=== PATIENT | male | born 1945 | race Caucasian/White ===

== ENCOUNTER 2019-06-20 05:35 | Outpatient (RCR) | payer MEDICARE, MEDICAID, SELFPAY | END 2019-07-04 00:01 | LOC: ONCMED 05:35 | PROVIDERS: Family Provider Nurse Practitioner; Visit Provider Nurse Practitioner | DX: C34.31 Malignant neoplasm of lower lobe, right bronchus or lung (principal); J43.9 Emphysema, unspecified; R53.83 Other fatigue; M19.90 Unspecified osteoarthritis, unspecified site; J90 Pleural effusion, not elsewhere classified; I25.2 Old myocardial infarction; I25.10 Atherosclerotic heart disease of native coronary artery without angina pectoris; I10 Essential (primary) hypertension; E78.5 Hyperlipidemia, unspecified; I73.9 Peripheral vascular disease, unspecified; I71.4 Abdominal aortic aneurysm, without rupture; M06.9 Rheumatoid arthritis, unspecified; K21.9 Gastro-esophageal reflux disease without esophagitis; D47.2 Monoclonal gammopathy; Z79.52 Long term (current) use of systemic steroids; Z87.891 Personal history of nicotine dependence; Z99.81 Dependence on supplemental oxygen | CPT/HCPCS: 80053; 84439; 84443; 85025; 99214 ==

== ENCOUNTER 2019-07-21 06:25 | Outpatient (RCR) | payer MEDICARE, MEDICAID, SELFPAY ==
[2019-07-10 17:34] LABS: Basophils % 0.4 %; Eosinophils # 0.6 10^3/uL (0.0-0.8); Eosinophils % 6.6 %; Hematocrit 43.2 % (42.0-52.0); Hemoglobin 13.4 g/dL (11.7-16.6); Lymphocytes # 2.3 10^3/uL (0.8-4.8); Lymphocytes % 24.8 %; Mean Corpuscular Hemoglobin 29.3 pg (28.0-34.0); Mean Corpuscular Volume 94.5 fL (80-94); Mean Platelet Volume 10.8 fL (7.4-10.4); Monocytes # 0.9 10^3/uL (0.2-0.9); Monocytes % 9.8 %; Neutrophils # 5.3 10^3/uL (1.8-7.7); Neutrophils % 57.9 %; Nucleated Red Blood Cells % 0 %; Platelet Count 255 10^3/cmm (130-400); Red Blood Count 4.57 10^6/uL (4.1-5.3); Red Cell Distribution Width 16.1 % (12.1-15.1); White Blood Count 9.2 10^3/uL (4.0-10.0)
[2019-07-10 23:25] LABS: Alanine Aminotransferase 12 U/L (0-41); Albumin Level 3.7 g/dL (3.5-5.2); Alkaline Phosphatase 95 IU/L (40-130); Anion Gap 19.5 (5-19); Aspartate Amino Transferase 16 U/L (0-40); Blood Urea Nitrogen 14 mg/dL (8-23); Calcium 9.7 mg/Dl (8.8-10.2); Carbon Dioxide 27 mmol/L (22-29); Chloride 100 mmol/L (98-107); Globulin 3.3 g/dL (1.3-4.6); Glucose 53 mg/dL (74-106); Potassium 4.5 mmol/L (3.5-5.1); Sodium 142 mmol/L (136-145); Thyroid Stimulating Hormone 1.37 uIU/mL (0.27-4.20); Total Bilirubin 0.3 mg/dL (0.15-1.2)
--- NOTE | 2019-07-13 11:26 | CT_ITS ---
WS: [id number] CT CHEST TECHNIQUE: Contrast enhanced CT of the chest with coronal and sagittal reformatted images. CLINICAL INFORMATION: LUNG CANCER COMPARISON: June 10, 2019 DLP: 592.[address] scans at [facility] use at least one of these dose optimization techniques: automat ed exposure control; mA and/or kV adjustment per patient size (includes targeted exams where dose is matched to clinical indication); or iterative reconstruction. FINDINGS: Advanced chronic emphysematous change. Again seen is the mass in the medial aspect of the right lower lobe today measuring approximately 5.4 x 5.2 cm x 4.6 cm compared to 4.6 x 4.3 cm x 4.2 cm previousl y. Stable subcarinal extension of tumor with subcarinal lymphadenopathy. Tumor appears increased in s ize since February 17, 2019 and slightly increased since June 10, 2019. Aortic calcification. Coronary calcification. Anterior mediastinal lymph nodes are unchanged. Stable bilateral pleural plaques. Interstitial thickening within both lungs. A few calcified granulom as. 4 mm noncalcified subpleural nodule in the left upper lobe is unchanged. Adrenal glands are normal. 1. Interval increase in size of the right lower lobe posterior mediastinal and subcarinal mass today measuring 5.1 x 5.2 x 4.6 cm increase in size over the prior 2 examinations. 2. Stable subcarinal extension of tumor and lymphadenopathy. 3. Stable numerous prominent anterior mediastinal lymph nodes. 4. Advanced chronic emphysematous changes. No acute pulmonary infiltrates. 5. Stable pleural plaques. CT/CT chest w con* [id number] IMPRESSION:
[2019-07-13] MEDS: iodixanol 320 mg/mL 100mL Btl IV (13:46)
[2019-07-13 13:58] LABS: Basophils % 0.3 %; Eosinophils # 0.2 10^3/uL (0.0-0.8); Eosinophils % 1.8 %; Hematocrit 39.4 % (42.0-52.0); Hemoglobin 12.3 g/dL (11.7-16.6); Lymphocytes % 10.9 %; Mean Corpuscular HGB Conc 31.2 g/dL (30.0-36.0); Mean Corpuscular Hemoglobin 28.1 pg (28.0-34.0); Monocytes # 0.6 10^3/uL (0.2-0.9); Monocytes % 6.6 %; Neutrophils # 7.6 10^3/uL (1.8-7.7); Neutrophils % 79.5 %; Nucleated Red Blood Cells % 0 %; Platelet Count 252 10^3/cmm (130-400); Red Blood Count 4.38 10^6/uL (4.1-5.3); Red Cell Distribution Width 15.8 % (12.1-15.1); White Blood Count 9.6 10^3/uL (4.0-10.0)
[2019-07-13 14:16] LABS: Alanine Aminotransferase 11 U/L (0-41); Albumin Level 3.6 g/dL (3.5-5.2); Alkaline Phosphatase 94 IU/L (40-130); Aspartate Amino Transferase 15 U/L (0-40); Blood Urea Nitrogen 16 mg/dL (8-23); Calcium 9.1 mg/Dl (8.8-10.2); Carbon Dioxide 27 mmol/L (22-29); Chloride 99 mmol/L (98-107); Globulin 2.9 g/dL (1.3-4.6); Glucose 114 mg/dL (74-106); Sodium 137 mmol/L (136-145); Thyroid Stimulating Hormone 0.75 uIU/mL (0.27-4.20); Total Bilirubin 0.3 mg/dL (0.15-1.2); Total Protein 6.5 g/dL (6.6-8.7)
--- NOTE | 2019-07-17 10:40 | ONC FU_ITS ---
Dr. Akins Patient Follow-Up Note Patient: Javier Alexander Unit #: [id number]: [id number] Dicatated By: Joseph Akins M.D.Date of Visit:Jul 11, 2019 Onc Med Follow-up/Prog Note Chief Complaint: Lung cancer. 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 By clinical evaluation his disease is stage IIIB (T2b, N3, M0). I had seen him initially in June 2016 in regard to a low level IgM kappa monoclonal gammopathy. It had initially been discovered in March 2016 when his serum protein electrophoresis confirmed the presence of an IgM kappa paraprotein which quantitated at 0.21 g/dL. His CBC at that time showed normal hemoglobin at 14.6 g with hematocrit 44.6%. The white blood cell count was normal at 8500 and the platelet count was normal at 288,000. Comprehensive metabolic profile was unremarkable except for borderline renal function with BUN 15 and creatinine 1.2 mg/dL. The bilirubin and liver enzymes were normal. Calcium was normal 9.1 mg/dL. His evaluation had also included contrast-enhanced CT scans of the chest/abdomen/pelvis on 05/08/2016. The chest showed extensive centrilobular and paraseptal emphysematous changes, especially involving the upper lobes. There were increased interstitial opacities with honeycombing involving both lower lobes. The findings were felt to be consistent with interstitial pulmonary fibrosis, and they did appear to be progressive from a study in October 2013. A flattened density in the peripheral right middle lobe was unchanged, measuring 6.5 mm. There were no other mass lesions identified. A right paratracheal lymph node measured 1 x 1.8 cm with smaller subcentimeter right paratracheal lymph nodes also noted. An AP window lymph node measured 1.3 cm. Partially calcified subcarinal node or nodes measured up to 3.5 cm in width and 1.2 cm in depth with left hilar node and measuring 1.3 cm. There were smaller hilar nodes bilaterally up to 1.1 cm. The abdomen showed extensive atherosclerotic peripheral vascular disease with a 3.1 cm distal abdominal aortic aneurysm, increased from 2.7 cm in 2014. Given the findings, I had just recommended observation/expectant management for the monoclonal gammopathy. I had recommended that he had a follow-up chest CT scan, which he declined. On 06/23/2018 he was admitted to the hospital with an acute ST elevation myocardial infarction. He had been brought in by EMS following an episode of witnessed syncope with substernal chest pain. While in route he went into ventricular fibrillation requiring CPR. 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 He underwent stenting to the proximal and mid right coronary artery. Additional stenoses were noted in the left main, LAD, and circumflex arteries. He subsequently was evaluated by Dr. Espinosa and was recommended to undergo cardiac bypass surgery. In the meantime, repeat chest x-ray on 06/26/2018 showed evidence of the right lower lobe mass lesion versus right hilar lymphadenopathy, consistent with neoplasm. Further evaluation with chest CT showed a bulky superior segment right lower lobe neoplasm measuring 5.1 x 6.2 x 7.6 cm. There was associated subcarinal adenopathy measuring 4.4 x 2.3 x 6.2 cm. There was additional precarinal, right paratracheal, AP window, and bilateral hilar lymphadenopathy. There was evidence of bilateral lower lobe pneumonia and there was severe chronic emphysema. Also noted was progressive interstitial pulmonary fibrosis. Multiple foci of calcified pleural plaque formation in both alexsander-thoraces in the bilateral hemidiaphragms was felt to be consistent with prior asbestos exposure. PET/CT on 07/02/2018 showed a 5.1 x 4.7 cm superior segment right lower lobe mass with SUV 28.4. The mass was noted to extend into the hilum. A separate 2.4 cm node in the right middle lobe hilum was FDG avid with SUV 18.9. Malignant mediastinal adenopathy was also present with the index lesion in the subcarinal territory measuring 4.3 x 2.5 cm, SUV 25.8. Other smaller malignant nodes were present in the bilateral paratracheal and precarinal territories. On 07/15/2018 he underwent flexible diagnostic bronchoscopy. He was noted to have an endobronchial lesion in the right lower lobe bronchus. Biopsy showed poorly differentiated invasive squamous cell carcinoma. I had seen him initially on 07/25/2018. By clinical evaluation his disease was stage IIIB (T2b, N3, M0), the usual treatment for which would be concurrent chemoradiation. However, in view of his underlying medical illnesses and marginal performance status, our initial recommendation was to continue with palliative radiation as a single modality. In the meantime, I also requested a PD-L1 expression, and his tumor was found to have high PD-L1 expression by IHC, approximately 80% by PD-L1 clone 22C3. His medical history is otherwise significant for hypertension, hyperlipidemia, carotid artery disease, peripheral arterial disease, and known abdominal aortic aneurysm. His other illnesses include COPD, pulmonary fibrosis, rheumatoid arthritis, GERD, and a history of stroke. He has history of smoking for 60 years, previously up to 1 1/2 packs of cigarettes daily. He currently smokes 1 pack per day. He has had some alcohol use in the past, but not heavy. He quit drinking in 2010. INTERIM HISTORY: Because of his rheumatoid arthritis, he was referred to [facility] for the radiation. However, given the size of his tumor and the size of the radiation field that would be required to treat it, it was felt that radiation would have more risk than benefit. As such, he began a trial of therapy with pembrolizumab, cycle 1 beginning 09/01/2018. He tolerated the initial infusion well, and he then continued treatment at 3-week intervals. He received his 8th cycle on 01/26/2019. At his follow-up visit on 02/16/2019 I opted to put his treatment on hold due to worsening shortness of breath. His chest CT on 02/17/2019 showed marginal decrease in the size of the right upper lobe neoplasm with stable mediastinal and hilar lymphadenopathy. There was noted to be an enlarging left axillary lymph node. There was extensive calcified pleural plaque formation suggestive of prior asbestos exposure. There was evidence of chronic emphysema with bibasilar and to a lesser extent bilateral upper lobe interstitial fibrosis. With those findings, I did have him start on steroid therapy. He subsequently did show some improvement in his symptoms, and he was able to continue with cycle 9 of pembrolizumab on 03/07/2019. He tolerated it with no adverse effect, and he has since then continued treatment at 3-week intervals. He received his 13th cycle on 05/30/2019 On 06/10/2019 he had presented to the emergency room with increased shortness of breath. A CT pulmonary angiogram showed no evidence for pulmonary embolism. There was moderate to severe emphysema. A mass in the medial aspect of the right lower lobe was noted to have diminished in size from approximately 8 cm to 4 cm. Subcarinal tumor extension or adenopathy also was noted to have diminished in size. The previously noted areas of consolidation/infiltrate throughout both lung bases has almost completely resolved. Overall, there did not appear to be any acute findings and there was no evidence of disease progression. At his follow-up visit on 06/20/2019 he continued to complain of shortness of breath, and his treatment was put on hold. He is seen for a scheduled visit. He has been feeling a little better generally other than the antibiotic he had been given made him sick. He also had poor tolerance for a new breathing treatment which he had started. He has since then been back on his old breathing treatment, and he has had to increase his alprazolam dosage. He has continued on 10 mg of prednisone daily. He also required an increase in the dosage of his pain medication. However, he says he does have more energy now. He is able to do light work. ECOG score is 1. He also is eating more, and he has gained weight. He has not had fever. He occasionally has sweating at night. His breathing is just so-so, but better now than it had been. He has just occasional cough. He has pain intermittently in the upper back between the shoulder blades. He has occasional acid reflux and occasional constipation. He has no complaints. He also complains that he aches and hurts all over. He has no focal neurologic symptoms. Medications: ALPRAZolam 1 Tablet (of 0.5 mg) Oral t.i.d. PRN, Anoro Ellipta 1 (62.5-25 mcg/inh) Aerosol Powder, Breath Activated Inhalation daily, Aspirin 1 (81 mg) Tablet Oral daily, Ipratropium-Albuterol 1 (20-100 mcg/act) Aerosol, solution Inhalation daily PRN, Isosorbide Mononitrate ER 0.5 Tablet (of 30 mg) Tablet SR 24 HR Oral daily, Metoprolol Tartrate 0.5 (25 mg) Tablet Oral daily, oxyCODONE HCl 1 - 1.5 Tablet (of 20 mg) Oral q 6 hours PRN, Pantoprazole Sodium 1 Tablet (of 40 mg) Tablet, enteric coated Oral daily, Plavix 1 Tablet (of 75 mg) Oral daily, predniSONE 1 Tablet (of 10 mg) Oral daily, PredniSONE 1 Tablet (of 5 mg) Oral daily PRN, Simvastatin 1 Tablet (of 40 mg) Oral at bedtime, Ventolin HFA 2 puff(s) (of 108 (90 base) mcg/act) Aerosol, solution Inhalation four times a day Allergies: AARON Inhibitors, Cymbalta, Plaquenil, and Pravachol. Review of Systems: Constitutional - His energy is up some. His appetite is good and he has gained weight. No fever, chills, hot flashes. He has occasional sweating at night, just around his head. ECOG score is 1, ENMT - He has sinus congestion/drainage. No mouth sores. No sore throat or difficulty swallowing, Hematologic/Lymphatic - He bruises easily, Respiratory - His breathing is okay. He wears continuous oxygen. He has a cough. No pleuritic pain or hemoptysis, Cardiovascular - He has occasional chest pain. No palpitations, Gastrointestinal - No nausea or vomiting. He has occasional acid reflux. No diarrhea or constipation. No blood in the stool or black stools, Genitourinary (M) - No dysuria or hematuria. No urinary frequency. No urgency or incontinence, Musculoskeletal - He has generalized pain, Integumentary - No skin complications, Neurologic - No headache. He sometimes feels dizzy and light-headed. No numbness/paresthesias or other focal neurologic symptoms, Psychiatric - He has some anxiety. No insomnia. Vital Signs: Performed on Jul 11, 2019 10:23 Height - 72.00 in Weight - 174.2 lbs (HIGH) BSA - 2.01 sq.m BMI - 23.63 Temperature - 98.4 F Pulse - 91 /min Respiration - 24 /min BP - 144/81 mm(hg) (HIGH) O2 Sat - 96 % Pain - 8 Physical Examination: Constitutional - He appears somewhat weak generally, Eyes - Sclerae nonicteric. Conjunctivae clear, ENMT - No lesions noted in the oral cavity, Hematologic/Lymphatic - No cervical, clavicular, or axillary adenopathy, Respiratory - Lungs sound clear with diminished air movement bilaterally, Cardiovascular - Heart rhythm is regular. There is a II/ systolic murmur. There is no gallop or rub noted, Abdomen - Soft. Liver and spleen are not enlarged. There is no abdominal mass or ascites noted and there is no inguinal adenopathy, Extremities - No edema. He has extensive purpura, Neurologic - No focal neurologic deficits noted. Lab/Imaging: Test performed on Jul 10, 2019 06:45 TSH 1.37 uU/mL Glucose 53 mg/dL BUN 14 mg/dL Creatinine 1.3 mg/dL Cr Clearance (Est) 55.72 mL/min Sodium 142 mmol/L Potassium 4.5 mmol/L Chloride 100 mmol/L CO2 27 mmol/L Calcium 9.7 mg/dL Protein, Total 7.0 g/dL Albumin 3.7 g/dL Globulin 3.3 g/dL Bilirubin, Total 0.3 mg/dL Alkaline Phosphatase 95 IU/L AST (SGOT) 16 IU/L ALT (SGPT) 12 IU/L WBC 9.2 10^9/L RBC 4.57 10^12/L HGB 13.4 g/dL HCT 43.2 % MCV 94.5 fl MCH 29.3 pg MCHC 31.0 g/dL RDW 16.1 % Platelet Count 255 10^9/L MPV 10.8 fL Neutrophils (Gran) 5.3 10^9/L Lymphocytes 2.3 10^9/L Monocytes 0.9 10^9/L Eosinophils 0.6 10^9/L Basophils 0.0 10^9/L Manual Lymphocytes 24.8 % Manual Monocytes 9.8 % Manual Eosinophils 6.6 % Manual Basophils 0.4 % NRBCs 0.0 /100 WBC Impression: 1. 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 The clinical evaluation his disease is stage IIIB (T2b, N3, M0). His tumor was found to have high PD-L1 expression by IHC, approximately 80% by PD-L1 clone 22C3. 2. On 06/23/[address] he [address] an acute ST elevation myocardial infarction requiring emergent coronary angioplasty/stent placement. 3. Prior to the procedure he had gone into ventricular fibrillation, requiring CPR and multiple shocks. 4. His cardiac catheterization showed additional occlusive disease in the left main, LAD, and left circumflex arteries. His other medical illnesses include: 5. Hypertension. 6. Hyperlipidemia. 7. Carotid stenosis. 8. Peripheral arterial disease. 9. Abdominal aortic aneurysm. 10. COPD. 11. Pulmonary fibrosis. 12. Rheumatoid arthritis. 13. GERD. 14. IgM kappa monoclonal gammopathy of determine significance. He was evaluated for radiation, but ultimately it was determined that the risks with radiation would be too high. As such, he then began first-line immunotherapy with pembrolizumab. He receives his cycle 1 infusion on 09/01/2018. He tolerated it well, and he then continued treatment at 3-week intervals. He received cycle 8 of pembrolizumab on 01/26/2019. At his follow-up visit on 02/16/2019 his treatment was put on hold due to worsening shortness of breath. At the time I had suspected that he might be having some component of treatment related pneumonitis, and I did have him start steroid therapy. A subsequent chest CT showed marginal decrease in the size of the right upper lobe neoplasm. There were a lot of chronic changes related to COPD, but those did appear stable. He did show some symptomatic improvement on the prednisone, and he was then able to continue with cycle 9 of pembrolizumab on 03/07/2019. He tolerated it with no adverse effects. He then continued treatment at 3-week intervals. As of 05/30/2019 he received cycle 13 of pembrolizumab. His treatment subsequent was put on hold due to increased shortness of breath. CT pulmonary angiogram showed no evidence of pulmonary embolism or other acute pathology, and there was no obvious disease progression. Plan: At this point I think it is best to keep his treatment on hold. He will continue prednisone at 10 mg daily. He also will continue alprazolam and immediate release oxycodone at the same dosages, as he clearly has had improved performance status with better symptom management. He will be scheduled for repeat chest CT for further treatment planning. Signed By: Joseph Akins M.D. <<Signature on File>>
--- NOTE | 2019-07-22 13:18 | ONCRAD EPV_ITS ---
Radiation Oncology Established Patient Visit Patient: Suyapa MR#: [id number] : 1945> Age: 73> Sex: Male> Dictated by: Dr. Alan Arevalo Date of Service: 07/21/2019 Referring Physician(s) : Ange Maldonado Diagnosis: C34.31 - Malignant neoplasm of lower lobe, right bronchus or lung, Diagnosed 07/25/2018 (Active) Stage IIIB, T2b, N3, M0 D47.2 - Monoclonal gammopathy, Diagnosed 03/11/2016 (Active) Chief Complaint / History of Present Illness: This is a 72-year-old man with a history of CO and rheumatoid arthritis diagnosed with stage IIIA (T2b, N2, M0) poorly differentiated infiltrating squamous cell carcinoma involving the right lower lobe of the lung with mediastinal and right hilar lymphadenopathy. He was evaluated at [facility] in [place] and was recommended to receive anti-PD1 immunotherapy. Concurrent chemoradiation therapy was not recommended due to the close proximity of the tumor to the heart while he had CO at the time of lung cancer diagnosis as well as history of rheumatoid arthritis. His tumor had a high expression of PD-L1 and he had some response to immunotherapy with marginal decrease in size of the tumor. However immunotherapy was put on hold due to increased shortness of breath. He received prednisone treatment with improved symptom. The patient notes productive cough, mild hemoptysis and posterior mid back pain which is moderate. He has severe fatigue, night sweats, but denies poor appetite or significant weight loss. He denies headaches, nausea, vomiting or focal neurological deficits. The patient was referred to radiation oncology for consideration of palliative radiation therapy. Current Medications: ALPRAZolam, aLPRAZolam, anoro Ellipta, aspirin, fentaNYL, ipratropium-Albuterol, ipratropium-Albuterol, isosorbide Mononitrate ER, keytruda, metoprolol Tartrate, nicotine, oxyCODONE HCl, oxyCODONE HCl, pantoprazole Sodium, plavix, predniSONE, predniSONE, predniSONE, simvastatin, ventolin HFA. Allergies: Cymbalta, Pravachol, Plaquenil and AARON Inhibitors. Current Complaints / Review of Systems: Constitutional - Complains of severe fatigue. Complains of night sweats which occur occasionally. Denies lack of appetite, fever and change in weight. Eyes - Complains of blurred vision which happens once in awhile. ENMT - Complains of dysphagia occasionally, problems with hearing and tinnitus. Denies ear pain, mouth dryness, stomatitis and altered taste. Neck - Denies neck pain. Integumentary - Denies rash. Cardiovascular - Complains of chest pain which happens occasionally. Respiratory - Complains of a moderate cough which is productive. Complains of hemoptysis that is streaky which happens mostly in the mornings. Complains of wheezing on 4L of 02 by NC. Gastrointestinal - Complains of abdominal pain occasionally, constipation, heartburn / dyspepsia happens once in awhile and nausea occasionally. Denies diarrhea, melena / GI bleeding and vomiting. Genitourinary (M) - Denies dysuria, frequency, nocturia and urgency. Musculoskeletal - Complains of arthritis in which he has Rheumatoid. Complains of joint pain. Complains of generalized muscle weakness. Denies bone pain. Neurologic - Complains of intermittent dizziness. Denies headaches. Endocrine - Denies diabetes and thyroid disease. Hematologic/Lymphatic - Denies tender or enlarged lymph nodes.. Vital Signs: Performed on 07/21/2019 10:06 AM BMI - 24.385 kg/m2 (high), Height - 72.00 in, Weight - 179.8 lbs, Temperature - 97.2 f, Pulse - 80, Respiration - 20, O2 Sat - 93 % (low), Pain - 8 and BP - 148/ 81 mm(hg)(high/). Physical Exam: General: Alert and oriented x 3. No acute distress. HEENT: Normocephalic, atraumatic. Extraocular Movements Intact: Pupils Equal, Round, Reactive to Light and Accommodation: Sclerae anicteric. Oral cavity is clear without lesions, masses or ulcers. NECK: Supple without supraclavicular or jugular lymphadenopathy. LUNGS: Clear to auscultation bilaterally without rales, rhonchi or wheeze. HEART: Regular rate and rhythm, normal S1 and S2 without murmur, gallop or rub. MUSCULOSKELETAL: No tenderness or percussion pain over the axial skeleton, scapulae or pelvis. ABDOMEN: Soft, nontender, nondistended without masses or organomegaly. Bowel sounds are present. EXTREMITIES: No peripheral edema is identified. Limited motor and sensory examination are grossly intact and symmetric bilaterally. NEUROLOGIC: Cranial nerves II ???XII are grossly intact. Normal sensation, strength 5/5 in all extremities, normal gait, no ataxia. Performance Status: 2 - Ambulatory/capable of all self-care, unable to perform any work activities. Up and about more than 50% of waking hours. (ECOG) Lab: Test performed on 07/10/2019 6:45 AM MCHC - 31.0 g/dl (low), RDW - 16.1 % (high), Eosinophils - 0.6 10^9/l (high) and Cr Clearance (Est) - 55.72 ml/min (low). Pathology: poorly differentiated infiltrating squamous cell carcinoma Imaging: See HPI Impression: This is a 72-year-old man with a history of CO and rheumatoid arthritis diagnosed with stage IIIA (T2b, N2, M0) poorly differentiated infiltrating squamous cell carcinoma involving the right lower lobe of the lung with mediastinal and right hilar lymphadenopathy. He received anti-PD1 immunotherapy in the past 1 year with marginal response. However the immunotherapy is put on hold due to potential toxicity of increased shortness of breath. Plan: Medical oncology has decided to discontinue anti-PD1 immunotherapy. Patient was referred to us for consideration of palliative radiation therapy. However he has a high risk of radiation toxicities due to his comorbidities of rheumatoid arthritis, myocardial infarction and close proximity of the tumor to the heart. We had a prolonged discussion about the situation. Eventually we agreed that he should seek a second opinion about radiation therapy at [facility] since immunotherapy is no longer an option at this time. We will make the referral. The patient will follow up with us after his visit to [facility]. Signed by: 07/22/2019 1:17:09 PM <<Signature on File>> CPT Code: CPT Code: Signed By: Dr. Alan Arevalo, 07/22/2019 1:17:10 PM <<Signature on File>>
== END 2019-08-04 23:59 | disposition home or self-care (01) ==
LOC: RAD 06:25
PROVIDERS: Internal Medicine Medical Oncology; Nurse Practitioner; Family Provider Nurse Practitioner; PCP Nurse Practitioner; Visit Provider Radiology Radiation Oncology
DX: C34.31 Malignant neoplasm of lower lobe, right bronchus or lung (principal); D47.2 Monoclonal gammopathy; J44.9 Chronic obstructive pulmonary disease, unspecified; Z79.899 Other long term (current) drug therapy
CPT/HCPCS: 71260; 80053; 84443; 85025; 99214; 99215; Q9967

== ENCOUNTER 2019-08-28 05:17 | Outpatient (RCR) | payer MEDICARE, MEDICAID, SELFPAY ==
[2019-08-25 14:41] LABS: Basophils # 0.1 10^3/uL (0.0-0.1); Basophils % 0.6 %; Eosinophils # 0.1 10^3/uL (0.0-0.8); Hematocrit 43.7 % (42.0-52.0); Hemoglobin 13.7 g/dL (11.7-16.6); Lymphocytes # 1.1 10^3/uL (0.8-4.8); Lymphocytes % 9.5 %; Mean Corpuscular HGB Conc 31.4 g/dL (30.0-36.0); Mean Corpuscular Hemoglobin 28.7 pg (28.0-34.0); Mean Corpuscular Volume 91.4 fL (80-94); Mean Platelet Volume 9.9 fL (7.4-10.4); Monocytes # 0.5 10^3/uL (0.2-0.9); Monocytes % 4.6 %; Neutrophils # 9.6 10^3/uL (1.8-7.7); Neutrophils % 83.7 %; Nucleated Red Blood Cells % 0 %; Platelet Count 365 10^3/cmm (130-400); Red Blood Count 4.78 10^6/uL (4.1-5.3); Red Cell Distribution Width 16.2 % (12.1-15.1); White Blood Count 11.4 10^3/uL (4.0-10.0)
[2019-08-25 15:26] LABS: Alanine Aminotransferase 11 U/L (0-41); Albumin Level 3.5 g/dL (3.5-5.2); Alkaline Phosphatase 92 IU/L (40-130); Anion Gap 19.5 (5-19); Aspartate Amino Transferase 17 U/L (0-40); Blood Urea Nitrogen 13 mg/dL (8-23); Calcium 9.4 mg/dL (8.5-10.5); Carbon Dioxide 24 mmol/L (22-29); Chloride 98 mmol/L (98-107); Globulin 3.9 g/dL (1.3-4.6); Glucose 147 mg/dL (65-115); Potassium 4.5 mmol/L (3.5-5.1); Sodium 137 mmol/L (136-145); Thyroid Stimulating Hormone 1.08 uIU/mL (0.27-4.20); Total Bilirubin 0.3 mg/dL (0.15-1.2); Total Protein 7.4 g/dL (6.6-8.7)
[2019-08-25 15:27] LABS: Erythrocyte Sedimentation Rate 25 mm/hr (0-10)
--- NOTE | 2019-09-01 08:07 | ONC FU_ITS ---
Dr. Akins Patient Follow-Up Note Patient: Javier Alexander Unit #: [id number]: [id number] Dicatated By: Joseph Akins M.D.Date of Visit:Aug 28, 2019 Onc Med Follow-up/Prog Note Chief Complaint: Lung cancer. 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 By clinical evaluation his disease is stage IIIB (T2b, N3, M0). I had seen him initially in June 2016 in regard to a low level IgM kappa monoclonal gammopathy. It had initially been discovered in March 2016 when his serum protein electrophoresis confirmed the presence of an IgM kappa paraprotein which quantitated at 0.21 g/dL. His CBC at that time showed normal hemoglobin at 14.6 g with hematocrit 44.6%. The white blood cell count was normal at 8500 and the platelet count was normal at 288,000. Comprehensive metabolic profile was unremarkable except for borderline renal function with BUN 15 and creatinine 1.2 mg/dL. The bilirubin and liver enzymes were normal. Calcium was normal 9.1 mg/dL. His evaluation had also included contrast-enhanced CT scans of the chest/abdomen/pelvis on 05/08/2016. The chest showed extensive centrilobular and paraseptal emphysematous changes, especially involving the upper lobes. There were increased interstitial opacities with honeycombing involving both lower lobes. The findings were felt to be consistent with interstitial pulmonary fibrosis, and they did appear to be progressive from a study in October 2013. A flattened density in the peripheral right middle lobe was unchanged, measuring 6.5 mm. There were no other mass lesions identified. A right paratracheal lymph node measured 1 x 1.8 cm with smaller subcentimeter right paratracheal lymph nodes also noted. An AP window lymph node measured 1.3 cm. Partially calcified subcarinal node or nodes measured up to 3.5 cm in width and 1.2 cm in depth with left hilar node and measuring 1.3 cm. There were smaller hilar nodes bilaterally up to 1.1 cm. The abdomen showed extensive atherosclerotic peripheral vascular disease with a 3.1 cm distal abdominal aortic aneurysm, increased from 2.7 cm in 2014. Given the findings, I had just recommended observation/expectant management for the monoclonal gammopathy. I had recommended that he had a follow-up chest CT scan, which he declined. On 06/23/2018 he was admitted to the hospital with an acute ST elevation myocardial infarction. He had been brought in by EMS following an episode of witnessed syncope with substernal chest pain. While in route he went into ventricular fibrillation requiring CPR. 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 He underwent stenting to the proximal and mid right coronary artery. Additional stenoses were noted in the left main, LAD, and circumflex arteries. He subsequently was evaluated by Dr. Espinosa and was recommended to undergo cardiac bypass surgery. In the meantime, repeat chest x-ray on 06/26/2018 showed evidence of the right lower lobe mass lesion versus right hilar lymphadenopathy, consistent with neoplasm. Further evaluation with chest CT showed a bulky superior segment right lower lobe neoplasm measuring 5.1 x 6.2 x 7.6 cm. There was associated subcarinal adenopathy measuring 4.4 x 2.3 x 6.2 cm. There was additional precarinal, right paratracheal, AP window, and bilateral hilar lymphadenopathy. There was evidence of bilateral lower lobe pneumonia and there was severe chronic emphysema. Also noted was progressive interstitial pulmonary fibrosis. Multiple foci of calcified pleural plaque formation in both alexsander-thoraces in the bilateral hemidiaphragms was felt to be consistent with prior asbestos exposure. PET/CT on 07/02/2018 showed a 5.1 x 4.7 cm superior segment right lower lobe mass with SUV 28.4. The mass was noted to extend into the hilum. A separate 2.4 cm node in the right middle lobe hilum was FDG avid with SUV 18.9. Malignant mediastinal adenopathy was also present with the index lesion in the subcarinal territory measuring 4.3 x 2.5 cm, SUV 25.8. Other smaller malignant nodes were present in the bilateral paratracheal and precarinal territories. On 07/15/2018 he underwent flexible diagnostic bronchoscopy. He was noted to have an endobronchial lesion in the right lower lobe bronchus. Biopsy showed poorly differentiated invasive squamous cell carcinoma. I had seen him initially on 07/25/2018. By clinical evaluation his disease was stage IIIB (T2b, N3, M0), the usual treatment for which would be concurrent chemoradiation. However, in view of his underlying medical illnesses and marginal performance status, our initial recommendation was to continue with palliative radiation as a single modality. In the meantime, I also requested a PD-L1 expression, and his tumor was found to have high PD-L1 expression by IHC, approximately 80% by PD-L1 clone 22C3. Because of his rheumatoid arthritis, he was referred to [facility] for the radiation. However, given the size of his tumor and the size of the radiation field that would be required to treat it, it was felt that radiation would have more risk than benefit. As such, he began a trial of therapy with pembrolizumab, cycle 1 beginning 09/01/2018. He tolerated the initial infusion well, and he then continued treatment at 3-week intervals. He received his 8th cycle on 01/26/2019. At his follow-up visit on 02/16/2019 I opted to put his treatment on hold due to worsening shortness of breath. His chest CT on 02/17/2019 showed marginal decrease in the size of the right upper lobe neoplasm with stable mediastinal and hilar lymphadenopathy. There was noted to be an enlarging left axillary lymph node. There was extensive calcified pleural plaque formation suggestive of prior asbestos exposure. There was evidence of chronic emphysema with bibasilar and to a lesser extent bilateral upper lobe interstitial fibrosis. With those findings, I did have him start on steroid therapy. He subsequently did show some improvement in his symptoms, and he was able to continue with cycle 9 of pembrolizumab on 03/07/2019. He tolerated it with no adverse effect, and he has since then continued treatment at 3-week intervals. He received his 13th cycle on 05/30/2019. On 06/10/2019 he had presented to the emergency room with increased shortness of breath. A CT pulmonary angiogram showed no evidence for pulmonary embolism. There was moderate to severe emphysema. A mass in the medial aspect of the right lower lobe was noted to have diminished in size from approximately 8 cm to 4 cm. Subcarinal tumor extension or adenopathy also was noted to have diminished in size. The previously noted areas of consolidation/infiltrate throughout both lung bases has almost completely resolved. Overall, there did not appear to be any acute findings and there was no evidence of disease progression. At his follow-up visit on 06/20/2019 he continued to complain of shortness of breath, and his treatment was put on hold. His medical history is otherwise significant for hypertension, hyperlipidemia, carotid artery disease, peripheral arterial disease, and known abdominal aortic aneurysm. His other illnesses include COPD, pulmonary fibrosis, rheumatoid arthritis, GERD, and a history of stroke. He has history of smoking for 60 years, previously up to 1 1/2 packs of cigarettes daily. He currently smokes 1 pack per day. He has had some alcohol use in the past, but not heavy. He quit drinking in 2010. INTERIM HISTORY: Repeat chest CT on 07/13/2019 showed interval increase in the size of the right lower lobe mass measuring 5.1 x 5.2 x 4.6 cm. Subcarinal extension of tumor and associated lymphadenopathy appeared stable, as did numerous prominent anterior mediastinal lymph nodes. There were advanced chronic emphysematous changes, but there were no acute pulmonary infiltrates. He is seen for a scheduled visit. In July he had seen Dr. Mar for pulmonary consultation. Since then he has started on a Trelegy inhaler and he has started antibiotic suppression with a azithromycin 250 mg daily. He continues to have limited activity tolerance. His ECOG score is 2. He has good appetite. He has not had fever. He occasionally has a little sweating at night. He occasionally has a little bit of sore throat. He continues to complain of shortness of breath. He has been having pain in the upper back between his shoulders, but it comes and goes. He has only a little bit of cough. He has been bringing up a little bit of blood with it in the mornings. He very seldom has chest pain. He has no GI/ complaints other than some mild constipation which he manages with just occasional laxative. He has generalized musculoskeletal pain, but it is managed adequately with medication. He occasionally has slight headache. He has no focal neurologic symptoms. Medications: ALPRAZolam 1 Tablet (of 0.5 mg) Oral t.i.d. PRN, Aspirin 1 (81 mg) Tablet Oral daily, Azithromycin 1 Tablet (of 250 mg) Oral daily for 60 days, Ipratropium-Albuterol 1 (20-100 mcg/act) Aerosol, solution Inhalation daily PRN, Isosorbide Mononitrate ER 0.5 Tablet (of 30 mg) Tablet SR 24 HR Oral daily, Metoprolol Tartrate 0.5 (25 mg) Tablet Oral daily, oxyCODONE HCl 1 - 1.5 Tablet (of 20 mg) Oral q 6 hours PRN, Pantoprazole Sodium 1 Tablet (of 40 mg) Tablet, enteric coated Oral daily, Plavix 1 Tablet (of 75 mg) Oral daily, predniSONE 1 Tablet (of 10 mg) Oral daily, Simvastatin 1 Tablet (of 40 mg) Oral at bedtime, Trelegy Ellipta 1 Puff(s) (of 100-62.5-25 mcg/inh) Aerosol Powder, Breath Activated Inhalation daily, Ventolin HFA 2 puff(s) (of 108 (90 base) mcg/act) Aerosol, solution Inhalation four times a day Allergies: AARON Inhibitors, Cymbalta, Plaquenil, and Pravachol. Review of Systems: Constitutional - His energy is about the same. He has limited activity. Appetite is good. He has not had fever. He occasionally has a little sweating at night. ECOG score is 2, ENMT - He has sinus drainage all the time. No mouth sores. No sore throat or difficulty swallowing, Hematologic/Lymphatic - He bruises easily, Respiratory - He has shortness of breath. He has a little bit of cough. He says he sometimes brings up a little bit of blood with it in the morning, Cardiovascular - He very seldom has chest pain. No palpitations, Gastrointestinal - No nausea or vomiting. No heartburn or acid reflux. He takes a laxative every once in a while, when he is constipated. No blood in the stool or black stools, Genitourinary (M) - No dysuria or hematuria. No urinary frequency. No urgency or incontinence, Musculoskeletal - He has generalized pain, Integumentary - No skin complications, Neurologic - He has occasional mild headaches. He has some dizziness, but very seldom. No numbness/paresthesias or other focal neurologic symptoms, Psychiatric - He has some anxiety and depression, but the Xanax helps. No insomnia. Vital Signs: Performed on Aug 28, 2019 09:20 Height - 72.00 in Weight - 174.0 lbs (LOW) BSA - 2.01 sq.m BMI - 23.60 Temperature - 98.7 F Pulse - 89 /min Respiration - 24 /min BP - 126/77 mm(hg) O2 Sat - 93 % (LOW) Pain - 8 Physical Examination: Constitutional - He appears somewhat weak generally, Eyes - Sclerae nonicteric. Conjunctivae clear, ENMT - No lesions noted in the oral cavity, Hematologic/Lymphatic - No cervical, clavicular, or axillary adenopathy, Respiratory - Lungs sound clear with diminished air movement bilaterally, Cardiovascular - Heart rhythm is regular. There is a II/ systolic murmur. There is no gallop or rub noted, Abdomen - Soft. Liver and spleen are not enlarged. There is no abdominal mass or ascites noted and there is no inguinal adenopathy, Extremities - No edema. He has chronic purpura, Neurologic - No focal neurologic deficits noted. Lab/Imaging: CBC shows hemoglobin 13.7 g, white blood cell count 11,400, and platelet count 365,000. Comprehensive metabolic profile shows elevated BUN and creatinine at 13 and 1.5 mg/dL. Liver enzymes are normal. Albumin is borderline low at 3.5 g/dL. TSH is normal at 1.08 ???IU/mL. Impression: 1. 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 The clinical evaluation his disease is stage IIIB (T2b, N3, M0). His tumor was found to have high PD-L1 expression by IHC, approximately 80% by PD-L1 clone 22C3. 2. On 06/23/[address] an acute [address] elevation myocardial infarction requiring emergent coronary angioplasty/stent placement. 3. Prior to the procedure he had gone into ventricular fibrillation, requiring CPR and multiple shocks. 4. His cardiac catheterization showed additional occlusive disease in the left main, LAD, and left circumflex arteries. His other medical illnesses include: 5. Hypertension. 6. Hyperlipidemia. 7. Carotid stenosis. 8. Peripheral arterial disease. 9. Abdominal aortic aneurysm. 10. COPD. 11. Pulmonary fibrosis. 12. Rheumatoid arthritis. 13. GERD. 14. IgM kappa monoclonal gammopathy of determine significance. He was evaluated for radiation, but ultimately it was determined that the risks with radiation would be too high. As such, he then began first-line immunotherapy with pembrolizumab. He receives his cycle 1 infusion on 09/01/2018. He tolerated it well, and he then continued treatment at 3-week intervals. He received cycle 8 of pembrolizumab on 01/26/2019. At his follow-up visit on 02/16/2019 his treatment was put on hold due to worsening shortness of breath. At the time I had suspected that he might be having some component of treatment related pneumonitis, and I did have him start steroid therapy. A subsequent chest CT showed marginal decrease in the size of the right upper lobe neoplasm. There were a lot of chronic changes related to COPD, but those did appear stable. He did show some symptomatic improvement on the prednisone, and he was then able to continue with cycle 9 of pembrolizumab on 03/07/2019. He tolerated it with no adverse effects. He then continued treatment at 3-week intervals. As of 05/30/2019 he received cycle 13 of pembrolizumab. His treatment subsequently was put on hold due to increased shortness of breath. CT pulmonary angiogram showed no evidence of pulmonary embolism or other acute pathology, and there was no obvious disease progression. During subsequent follow-up he did show some improvement in his breathing and in his performance status, though he continues to have limited activity tolerance. He had pulmonary consultation with Dr. Mar, and he has changed to a Trelegy inhaler along with antibiotic suppression with a azithromycin. His repeat chest CT in July did show further progression of the right lower lobe lung mass. Plan: At this point he remains on symptomatic/supportive care measures, as his further treatment options are very limited.. He continues prednisone at 10 mg daily. He also continues alprazolam and immediate release oxycodone at the same dosages. His other medications remain the same. I will see him again in 1 month with restaging PET/CT. Signed By: Joseph Akins M.D. <<Signature on File>>
== END 2019-09-02 23:59 | disposition home or self-care (01) ==
LOC: ONCMED 05:17
PROVIDERS: Radiology Radiation Oncology; Family Provider Nurse Practitioner; PCP Nurse Practitioner; Visit Provider Internal Medicine Medical Oncology
DX: C34.31 Malignant neoplasm of lower lobe, right bronchus or lung (principal); D47.2 Monoclonal gammopathy; I25.2 Old myocardial infarction; J84.10 Pulmonary fibrosis, unspecified; F41.8 Other specified anxiety disorders; J43.9 Emphysema, unspecified; I73.9 Peripheral vascular disease, unspecified; I71.4 Abdominal aortic aneurysm, without rupture; M06.9 Rheumatoid arthritis, unspecified; Z77.090 Contact with and (suspected) exposure to asbestos; Z79.82 Long term (current) use of aspirin; Z79.891 Long term (current) use of opiate analgesic; Z79.52 Long term (current) use of systemic steroids; Z79.899 Other long term (current) drug therapy; Z95.5 Presence of coronary angioplasty implant and graft; Z92.3 Personal history of irradiation; Z87.01 Personal history of pneumonia (recurrent); Z95.1 Presence of aortocoronary bypass graft; Z86.73 Personal history of transient ischemic attack (TIA), and cerebral infarction without residual deficits; Z92.21 Personal history of antineoplastic chemotherapy
CPT/HCPCS: 80053; 84443; 85025; 85651; 99214

== ENCOUNTER 2019-09-11 07:42 | Emergency (ER) | payer MEDICARE, MEDICAID, SELFPAY ==
[2019-09-11 07:43] VITALS: BMI 23.7
--- NOTE | 2019-09-11 07:44 | XRR_ITS ---
PROCEDURE INFORMATION: Exam: XR Chest, 1 View Exam date and time: 09/11/2019 8:02 AM Age: 74 years old Clinical indication: Cough; Prior surgery; Surgery date: 6+ months; Surgery type: Stents, date no provided; Additional info: Cough/congestion TECHNIQUE: Imaging protocol: XR of the chest Views: 1 view. COMPARISON: [place] Chest 1 [place] [id number] 06/11/2019 10:37 PM CR - Chest 2 views* [id number] 06/10/2019 12:58:59 PM FINDINGS: Lungs: There is bilateral chronic interstitial lung disease. There is a focal area of consolidation in the medial mid right hemithorax which appears to be bounded superiorly by a fissure. This is probably in the superior medial right middle lobe. Pleural space: No pleural effusion or pneumothorax. There are bilateral calcified pleural plaques. Heart/Mediastinum: The cardiac silhouette is not enlarged. The mediastinal contours are normal. Bones/joints: No acute osseous abnormality. XR/XR chest 1V portable [id number] IMPRESSION: 1. Focal consolidation in the superior medial right middle lobe which can be due to acute pneumonia. 2. This appears to be superimposed upon chronic interstitial lung disease. 3. Bilateral calcified pleural plaques suggesting prior asbestos exposure.
--- NOTE | 2019-09-11 07:44 | ECG_ITS ---
Measurements Intervals [place] Rate: 65 P: 40 [place]: 210 QRS: -17 QRSD: 98 T: 7 QT: 409 QTc: 427 SINUS RHYTHM WITH FIRST DEGREE AV BLOCK Compared to ECG 06/11/2019 22:30:03 First degree AV block now present Electronically Signed On 09-11-2019 20:48:53 CDT by Wes Zamarripa M.D. [email or web address]
[2019-09-11 07:47] VITALS: BP 107/67; PULSE 75; RESP 18; TEMP 36.7; O2SAT 95
--- NOTE | 2019-09-11 07:54 | ED_ITS ---
Entered by Yvonne Valverde, acting as scribe for London Casas DO HPI - Chest Pain General: Chief Complaint: Chest Pain Stated Complaint: CHEST PAIN Time Seen by Provider: 09/11/19 07:48 Source: patient and EMS Mode of arrival: EMS Limitations: no limitations History of Present Illness: HPI narrative: 74 yo male presents with chest discomfort. pt states this started this morning. pt has had shortness of breath but this is chronic. pt states he has lung cancer and they want to keep him on comfort care. pt states Dr. Akins told him there was no further treatment necessary. pt denies any other symptoms at this time. MD complaint: chest pain and chest discomfort Onset (ago): day(s) Timing of current episode: constant and still present Prior episodes: No Onset: during rest Pain location: substernal Pain radiation: left shoulder and right shoulder Severity: mild Quality: tightness and sharp Relieving factors: medication-other Exacerbating factors: nothing Associated symptoms: Reports no associated symptoms; Deny abdominal pain, fever(s), nausea or vomiting Treatment prior to arrival: other (pain medication) Review of Systems General: Reports: 10 or more systems reviewed and unremarkable except in HPI and below Const: Denies: fever, chills, body aches, change in appetite, fatigue or malaise ENMT: Denies: throat pain, ear pain, nasal discharge or nasal congestion Card: Reports: chest pain; Denies: edema, shortness of breath on exertion, shortness of breath when lying down or leg pain with exertion GI: Denies: abdominal pain, nausea, vomiting, vomiting blood, coffee grounds in vomit, diarrhea, constipation, bloating, blood in stool or black tarry stool : Denies: flank pain, painful urination, urinary frequency or urinary u rgency Skin/Breast: Denies: rash or itching PFSH ED PFSH: Medical History Abdominal aortic aneurysm Carotid stenosis COPD (chronic obstructive pulmonary disease) GERD (gastroesophageal reflux disease) Hyperlipemia Hypertension PAD (peripheral artery disease) Pulmonary fibrosis Rheumatoid arthritis SCC (squamous cell carcinoma of lung) Surgical History H/O heart artery stent x3 Social History Smoking and tobacco status: current every day smoker cigarettes Packs smoked per day: 1 Years cigarettes smoked: 60 Alcohol intake: former Year of sobriety/quit date alcohol: 2010 Lives independently: Yes Current occupational status: retired History of recent travel: No Current gender identity: Male Physical Exam Const: COMMON NORMALS: no apparent distress GENERAL APPEARANCE: cooperative and comfortable ORIENTATION/CONSCIOUSNESS: Yes awake, Yes oriented to person, Yes oriented to place and Yes oriented to time HENMT: COMMON NORMALS: normocephalic, head/scalp atraumatic, hearing grossly normal bilaterally, external ears normal, EAC's normal, TM's normal bilaterally, nasal mucous membranes and turbinates normal, moist oral mucous membranes and oropharynx normal HEAD & SCALP: normocephalic and atraumatic NOSE: nasal mucous membranes and turbinates normal EXTERNAL EAR: Yes external ears normal EXTERNAL AUDITORY CANAL: EAC's normal TYMPANIC MEMBRANE: TM's normal bilaterally Eye: COMMON NORMALS: PERRL, EOMs intact bilaterally, conjunctivae normal and no scleral icterus CONJUNCTIVA: Yes conjunctivae normal PUPIL: Yes PERRL Neck/C-Spine: COMMON NORMALS: full ROM, no lymphadenopathy, supple and no JVD Lymph: LYMPHATIC: no lymphadenopathy noted and no lymphedema noted Resp: COMMON NORMALS: normal respiratory effort, no retractions and no use of accessory muscles AUSCULTATION: diminished lung sounds and bronchial breath sounds Cardio: COMMON NORMALS: no JVD GI: COMMON NORMALS: soft to palpation and no hepatosplenomegaly AUSCULTATION: Yes normoactive bowel sounds PALPATION: Yes soft, No tender, No guarding and Yes no hepatosplenomegaly Extremity: COMMON NORMALS: normal to inspection, normal capillary refill, no clubbing, cyanosis or edema, no calf tenderness and no pedal edema Neuro: SENSORIUM/ORIENTATION: Yes oriented to person, Yes oriented to place and Yes oriented to time Skin: COMMON NORMALS: no rashes or lesions noted GENERAL SKIN EXAM: no rashes or lesions noted Course ED course: Reviewed findings with the patient. Does appear he is a postob structive pneumonia. He is feeling much better he would like to go home. Discussed in weight with him the risks and benefits of inpatient versus outpatient treatment I think it is reasonable to treat him as an outpatient at this point will start him on Levaquin discharge him home asked him to follow-up with his primary care doctor within 3 to 4 days. Return to the ER if he worsens. Vital Signs: Vital signs: Vital Signs Temperature 98.0 F 09/11/19 07:47 Pulse Rate 78 09/11/19 11:46 Respiratory Rate 20 H 09/11/19 11:46 Blood Pressure 125/74 09/11/19 11:46 Pulse Oximetry 95 09/11/19 11:46 MDM - Chest Pain Lab Data: Labs: Lab Results 09/11/19 09/11/19 09/11/19 Range/Units 07:54 07:54 07:54 WBC 10.6 H (4.0-10.0) 10^3/ uL RBC 4.54 (4.1-5.3) 10^6/u L Hgb 12.6 (11.7-16.6) g/dL Hct 39.6 L (42.0-52.0) % MCV 87.2 (80-94) fL MCH 27.8 L (28.0-34.0) pg MCHC 31.8 (30.0-36.0) g/dL RDW 15.9 H (12.1-15.1) % Plt Count 276 (130-400) 10^3/c mm MPV 9.7 (7.4-10.4) fL Neut % (Auto) 75.5 % Lymph % (Auto) 11.7 % [place] % (Auto) 8.7 % Eos % (Auto) 3.0 % Baso % (Auto) 0.6 % Neut # (Auto) 8.0 H (1.8-7.7) 10^3/u L Lymph # (Auto) 1.2 (0.8-4.8) 10^3/u L Hopkins # (Auto) 0.9 (0.2-0.9) 10^3/u L Eos # (Auto) 0.3 (0.0-0.8) 10^3/u L Baso # (Auto) 0.1 (0.0-0.1) 10^3/u L Nucleated RBC % (a uto) 0 % Nucleated RBCs # 0.0 /100WBC Sodium 138 (136-145) mmol/L Potassium 4.0 (3.5-5.1) mmol/L Chloride 103 (98-107) mmol/L Carbon Dioxide 24 (22-29) mmol/L Anion Gap 15.0 (5-19) BUN 10 (8-23) mg/dL Creatinine 1.5 H (0.7-1.2) mg/dL Glucose 113 (65-115) mg/dL Calculated Osmolal ity 283 L (285-295) mOsm/k g Calcium 9.3 (8.5-10.5) mg/dL Total Bilirubin 0.4 (0.15-1.2) mg/dL AST 13 (0-40) U/L ALT 9 (0-41) U/L Alkaline Phosphata se 80 (40-130) IU/L Troponin T Baselin e 28 H (0-15) ng/mL Troponin T 120 Min [place] (0-15) ng/mL Delta Troponin T (0-10) ABS# Total Protein 6.8 (6.6-8.7) g/dL Albumin 3.3 L (3.5-5.2) g/dL Globulin 3.5 (1.3-4.6) g/dL 09/11/19 Range/Units 09:56 WBC (4.0-10.0) 10^3/ uL RBC (4.1-5.3) 10^6/u L Hgb (11.7-16.6) g/dL Hct (42.0-52.0) % MCV (80-94) fL MCH (28.0-34.0) pg MCHC (30.0-36.0) g/dL RDW (12.1-15.1) % Plt Count (130-400) 10^3/c mm MPV (7.4-10.4) fL Neut % (Auto) % Lymph % (Auto) % Hopkins % (Auto) % Eos % (Auto) % Baso % (Auto) % Neut # (Auto) (1.8-7.7) 10^3/u L Lymph # (Auto) (0.8-4.8) 10^3/u L [place] # (Auto) (0.2-0.9) 10^3/u L Eos # (Auto) (0.0-0.8) 10^3/u L Baso # (Auto) (0.0-0.1) 10^3/u L Nucleated RBC % (a uto) % Nucleated RBCs # /100WBC Sodium (136-145) mmol/L Potassium (3.5-5.1) mmol/L Chloride (98-107) mmol/L Carbon Dioxide (22-29) mmol/L Anion Gap (5-19) BUN (8-23) mg/dL Creatinine (0.7-1.2) mg/dL Glucose (65-115) mg/dL Calculated Osmolal ity (285-295) mOsm/k g Calcium (8.5-10.5) mg/dL Total Bilirubin (0.15-1.2) mg/dL AST (0-40) U/L ALT (0-41) U/L Alkaline Phosphata se (40-130) IU/L Troponin T Baselin e (0-15) ng/mL Troponin T 120 Min [place] 26.02 H (0-15) ng/mL Delta Troponin T -1.98 L (0-10) ABS# Total Protein (6.6-8.7) g/dL Albumin (3.5-5.2) g/dL Globulin (1.3-4.6) g/dL Discharge Plan Discharge Patient Disposition: Home, Self-Care Clinical Impression: Pneumonia, COPD (chronic obstructive pulmonary disease), Lung cancer Condition: Stable Prescriptions: New Levaquin 750 mg tablet 750 mg PO Q24H 7 Days Qty: 7 RF: 0 No Action Trelegy Ellipta 100-62.5-25 mcg blister with device 1 inh INHALATION Q24H 60 Days Qty: 60 RF: 2 alprazolam 0.5 mg tablet 0.5 mg PO TID RF: 0 Anoro Ellipta 62.5-25 mcg/actuation blister with device 1 inh INHALATION Q24H RF: 0 aspirin [Adult Aspirin Regimen] 81 mg tablet,delayed release (DR/EC) 81 mg PO ONCE RF: 0 ipratropium-albuterol 20-100 mcg/actuation mist 1 puff INHALATION ONCE PRNRF: 0 isosorbide dinitrate 30 mg tablet 15 mg PO ONCE RF: 0 losartan 50 mg tablet 50 mg PO ONCE RF: 0 mirtazapine 15 mg tablet 15 mg PO ONCE RF: 0 oxycodone 15 mg tablet 15 mg PO Q6H PRNRF: 0 pantoprazole 40 mg tablet,delayed release (DR/EC) 40 mg PO ONCE RF: 0 clopidogrel [Plavix] 75 mg tablet 75 mg PO ONCE RF: 0 prednisone 5 mg tablet 5 mg PO ONCE RF: 0 simvastatin 40 mg tablet 40 mg PO ONCE RF: 0 albuterol sulfate [Ventolin HFA] 90 mcg/actuation HFA aerosol inhaler 2 puff INHALATION Q6H PRNRF: 0 metoprolol succinate 25 mg tablet extended release 24 hr 12.5 mg PO ONCE 90 Days Qty: 45 RF: 3 Discharge Orders: Discharge Order (Routine); Ordered 09/11/19 Ordered By: London Casas Referrals: Ange Maldonado, [facility] [employer] [facility] [Primary Care Provider] - Discharge Diet: Usual diet Discharge Activity: Resume usual activity Activity Restrictions/Additional Instructions: Follow-up with your doctor within the next 3 to 4 days return to the ER if has worsening symptoms Discharge Date/Time: 09/11/19 11:49 Coding Level of Care Code ED Highway Traffic Control Technician for Chg Fwd Exam Comprehensive The documentation recorded by the Abram underwood Bridget Annette, accurately reflects the service I personally performed and the decisions made by Augusto key Curtis L, DO Sep 11, 2019 07:42
[2019-09-11 07:58] LABS: Basophils # 0.1 10^3/uL (0.0-0.1); Basophils % 0.6 %; Eosinophils # 0.3 10^3/uL (0.0-0.8); Hematocrit 39.6 % (42.0-52.0); Hemoglobin 12.6 g/dL (11.7-16.6); Lymphocytes # 1.2 10^3/uL (0.8-4.8); Lymphocytes % 11.7 %; Mean Corpuscular HGB Conc 31.8 g/dL (30.0-36.0); Mean Corpuscular Hemoglobin 27.8 pg (28.0-34.0); Mean Corpuscular Volume 87.2 fL (80-94); Mean Platelet Volume 9.7 fL (7.4-10.4); Monocytes # 0.9 10^3/uL (0.2-0.9); Monocytes % 8.7 %; Neutrophils % 75.5 %; Nucleated Red Blood Cells % 0 %; Platelet Count 276 10^3/cmm (130-400); Red Blood Count 4.54 10^6/uL (4.1-5.3); Red Cell Distribution Width 15.9 % (12.1-15.1); White Blood Count 10.6 10^3/uL (4.0-10.0)
[2019-09-11 08:13] LABS: Alanine Aminotransferase 9 U/L (0-41); Albumin Level 3.3 g/dL (3.5-5.2); Alkaline Phosphatase 80 IU/L (40-130); Aspartate Amino Transferase 13 U/L (0-40); Blood Urea Nitrogen 10 mg/dL (8-23); Calcium 9.3 mg/dL (8.5-10.5); Carbon Dioxide 24 mmol/L (22-29); Chloride 103 mmol/L (98-107); Globulin 3.5 g/dL (1.3-4.6); Glucose 113 mg/dL (65-115); Osmolality Calculated 283 mOsm/kg (285-295); Sodium 138 mmol/L (136-145); Total Bilirubin 0.4 mg/dL (0.15-1.2); Total Protein 6.8 g/dL (6.6-8.7)
[2019-09-11 08:14] LABS: Troponin(5th) Baseline 28 ng/mL (0-15)
[2019-09-11 08:39] VITALS: BP 107/67; PULSE 72; RESP 13; O2SAT 96
[2019-09-11 09:50] VITALS: RESP 18; O2SAT 95
[2019-09-11] MEDS: oxyCODONE IR 30 mg Tablet PO (09:50)
[2019-09-11 10:19] LABS: Troponin 5 2HR 26.02 ng/mL (0-15)
[2019-09-11 10:22] LABS: Troponin 5 2HR Delta -1.98 ABS# (0-10)
--- NOTE | 2019-09-11 11:42 | PC.NURSE ---
pateint alert and oriented and very eager to go home. patient to be discharged
[2019-09-11 11:46] VITALS: BP 125/74; PULSE 78; RESP 20; O2SAT 95
--- NOTE | 2019-09-11 13:44 | ECG_ITS ---
Measurements Intervals [place] Rate: 69 P: -12 CO: 181 QRS: -14 QRSD: 98 T: 29 QT: 402 QTc: 433 SINUS RHYTHM Compared to ECG 06/11/2019 22:30:03 No significant changes Electronically Signed On 09-11-2019 20:52:21 CDT by Wes Zamarripa M.D. [email or web address]
== END 2019-09-11 11:49 | disposition home or self-care (01) ==
PROVIDERS: Physician Assistant; Emergency Provider Family Medicine; Family Provider Nurse Practitioner; PCP Nurse Practitioner
DX: J18.9 Pneumonia, unspecified organism (principal); J44.9 Chronic obstructive pulmonary disease, unspecified; C34.90 Malignant neoplasm of unspecified part of unspecified bronchus or lung; E78.5 Hyperlipidemia, unspecified; I10 Essential (primary) hypertension; F17.210 Nicotine dependence, cigarettes, uncomplicated
CPT/HCPCS: 12345; 36415; 71045; 80053; 84484; 85025; 93005; 99282; 99283

== ENCOUNTER 2019-09-26 14:50 | Outpatient (RCR) | payer MEDICARE, MEDICAID, SELFPAY ==
[2019-09-26 17:53] LABS: Alanine Aminotransferase 11 U/L (0-41); Albumin Level 3.9 g/dL (3.5-5.2); Alkaline Phosphatase 91 IU/L (40-130); Anion Gap 19.7 (5-19); Aspartate Amino Transferase 16 U/L (0-40); Blood Urea Nitrogen 14 mg/dL (8-23); Calcium 9.5 mg/dL (8.5-10.5); Carbon Dioxide 23 mmol/L (22-29); Chloride 101 mmol/L (98-107); Globulin 3.1 g/dL (1.3-4.6); Glucose 132 mg/dL (65-115); Osmolality Calculated 286 mOsm/kg (285-295); Potassium 4.7 mmol/L (3.5-5.1); Sodium 139 mmol/L (136-145); Total Bilirubin 0.3 mg/dL (0.15-1.2)
[2019-09-26 18:01] LABS: Basophils % 0.3 %; Eosinophils # 0.1 10^3/uL (0.0-0.8); Eosinophils % 0.9 %; Hematocrit 43.2 % (42.0-52.0); Hemoglobin 13.8 g/dL (11.7-16.6); Lymphocytes # 1.3 10^3/uL (0.8-4.8); Lymphocytes % 13.9 %; Mean Corpuscular HGB Conc 31.9 g/dL (30.0-36.0); Mean Corpuscular Hemoglobin 29.2 pg (28.0-34.0); Mean Corpuscular Volume 91.3 fL (80-94); Mean Platelet Volume 10.1 fL (7.4-10.4); Monocytes # 0.7 10^3/uL (0.2-0.9); Neutrophils # 7.2 10^3/uL (1.8-7.7); Neutrophils % 77.5 %; Nucleated Red Blood Cells % 0 %; Platelet Count 311 10^3/cmm (130-400); Red Blood Count 4.73 10^6/uL (4.1-5.3); White Blood Count 9.3 10^3/uL (4.0-10.0)
== END 2019-10-03 23:59 | disposition home or self-care (01) ==
LOC: ONCMED 14:50
PROVIDERS: Family Provider Nurse Practitioner; PCP Nurse Practitioner; Visit Provider Internal Medicine Medical Oncology
DX: C34.31 Malignant neoplasm of lower lobe, right bronchus or lung (principal)
CPT/HCPCS: 80053; 85025

== ENCOUNTER 2019-10-19 18:45 | Inpatient (IN) | payer MEDICARE, MEDICAID, SELFPAY ==
--- NOTE | 2019-10-19 18:55 | CTR_ITS ---
PROCEDURE INFORMATION: Exam: CT Angiography Chest With Contrast Exam date and time: 10/19/2019 7:47 PM Age: 74 years old Clinical indication: Other: Coughing up blood; Prior surgery; Surgery type: Stents TECHNIQUE: Imaging protocol: Computed tomographic angiography of the chest with intravenous contrast. 3D rendering: MIP and/or 3D reconstructed images were created by the technologist. Total DLP: 663.47 mGy-cm Radiation optimization: All CT scans at this facility use at least one of these dose optimization techniques: automated exposure control; mA and/or kV adjustment per patient size (includes targeted exams where dose is matched to clinical indication); or iterative reconstruction. Contrast material: VISI 320; Contrast volume: 72 ml; Contrast route: IV; COMPARISON: 1. CTA Chest-Pulmonary Emb [id number] 06/10/2019 2:[address] chest w con* [id number] 07/13/2019 1:44:39 PM 3. PT - PET Scan 09/23/2019 10:27:34 AM FINDINGS: Pulmonary arteries: There is no evidence of filling defects within the pulmonary arterial circulation to suggest pulmonary embolism. Aorta: There are atherosclerotic changes in the aortic arch without evidence of aneurysm or dissection. Other veins: The right inferior pulmonary vein is obstructed by tumor and there is what appears to be tumor thrombus extending into the region of the right atrium, this is a new finding compared with 07/13/2019. Lungs: There are extensive changes of centrilobular emphysema throughout both lungs with an upper lobe predominance. There is bronchial wall thickening bilaterally and increased thickening of interlobular septa. These findings may represent fluid overload or congestive failure. Correlation with clinical findings is suggested. Right infrahilar pulmonary mass with subcarinal extension is obscured by the adjacent consolidation but is at least is large is on 09/23/2019. There is complete obstruction of the right lower lobe bronchus. There is increased consolidation in the right lower lobe which is now completely consolidated. This may represent either postobstructive pneumonia, or bronchoalveolar spread of tumor. There is also some platelike atelectasis in the right middle lobe. Pleural space: Findings of calcified pleural plaque are unchanged from the previous examination. There is moderate right pleural effusion. Heart: Unremarkable. No cardiomegaly. No pericardial effusion. Lymph nodes: There are prominent right paratracheal lymph nodes measuring up to 13 x 19 mm and this has increased somewhat compared with the previous examinations. Bones/joints: Unremarkable. No acute fracture. Soft tissues: Unremarkable. CT/CT angio chest PE protcl [id number] IMPRESSION: 1. Progression of lung cancer 2. 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 Complete obstruction of the right lower lobe bronchus with atelectasis and consolidation of the right lower lobe which could represent tumor spread, or postobstructive pneumonia. 4. Right pleural effusion 5. Congestive heart failure. Correlation with the clinical findings is suggested. 6. Calcified pleural disease unchanged. 7. No evidence of pulmonary embolism. Radiation Dose CTDIVOL = (mGy): DLP = 663.47 (mGy-cm)
[2019-10-19 19:01] VITALS: BP 108/58; PULSE 75; RESP 18; TEMP 530.7; TEMP 987.3; O2SAT 94; BMI 25.0
--- NOTE | 2019-10-19 19:05 | W.ED.SOB ---
HPI - SOB/Dyspnea General: Chief Complaint: Shortness of Breath/Dyspnea Stated Complaint: SPITTING UP BLOOD Time Seen by Provider: 10/19/19 18:52 Source: patient Mode of arrival: ambulatory Limitations: no limitations History of Present Illness: HPI Narrative: 74-year-old male has a history of lung cancer along with COPD and is a longtime smoker. He states he has had an increased cough the last 2 days and started coughing up a small amount of blood today. He denies any fevers. He has no increased shortness of breath. He states he was concerned with the coughing up of blood. MD elicited complaint: cough Pertinent past history: COPD Associated symptoms: Reports hemoptysis; Deny abdominal pain, chest pain, fever(s), nausea or vomiting Review of Systems Const: Denies: fever, chills, body aches or change in appetite Eyes: Denies: blurry vision or eye discomfort ENMT: Denies: throat pain or dental pain Card: Denies: chest pain Resp: Reports: productive cough and coughing up blood; Denies: shortness of breath GI: Denies: abdominal pain, nausea, vomiting or diarrhea : Denies: painful urination Musc: Denies: neck pain or back pain Skin/Breast: Denies: rash Neuro: Denies: headache Psych: Denies: depression Vern/Lymph: Denies: easy bruising All/Imm: Denies: hives PFSH ED PFSH: Medical History Abdominal aortic aneurysm Carotid stenosis COPD (chronic obstructive pulmonary disease) GERD (gastroesophageal reflux disease) Hyperlipemia Hypertension PAD (peripheral artery disease) Pulmonary fibrosis Rheumatoid arthritis SCC (squamous cell carcinoma of lung) Surgical History H/O heart artery stent x3 Social History Smoking and tobacco status: current every day smoker cigarettes Packs smoked per day: 1 Years cigarettes smoked: 60 Alcohol intake: former Year of sobriety/quit date alcohol: 2010 Lives independently: Yes Current occupational status: retired History of recent travel: No Current gender identity: Male Physical Exam Const: COMMON NORMALS: no apparent distress, oriented x3 and healthy appearing HENMT: COMMON NORMALS: normocephalic and head/scalp atraumatic HEAD & SCALP: normocephalic and atraumatic Eye: COMMON NORMALS: PERRL and EOMs intact bilaterally PUPIL: Yes PERRL Neck/C-Spine: COMMON NORMALS: full ROM and supple Chest: COMMONS NORMALS: inspection of chest normal and palpation of chest normal Resp: COMMON NORMALS: normal respiratory effort, no retractions, no use of accessory muscles and clear to auscultation bilaterally AUSCULTATION: clear to auscultation bilaterally Cardio: COMMON NORMALS: regular rate, regular rhythm and no murmurs RATE: regular rate RHYTHM: regular rhythm GI: COMMON NORMALS: normal to inspection, nondistended, normoactive bowel sounds, soft to palpation, non-tender and no masses PALPATION: Yes soft Extremity: COMMON NORMALS: normal to inspection and full ROM Neuro: COMMON NORMALS: oriented x3, moves all extremities and no focal motor deficits Psych: COMMON NORMALS: mental status grossly normal, thought process normal and cooperative THOUGHT PROCESS: normal thought process Skin: COMMON NORMALS: no rashes or lesions noted and no wounds GENERAL SKIN EXAM: no rashes or lesions noted Course Vital Signs: Vital signs: Vital Signs Temperature 987.3 F H 10/19/19 19:01 Pulse Rate 79 10/19/19 22:36 Respiratory Rate 18 10/19/19 22:36 Blood Pressure 114/60 10/19/19 22:36 Pulse Oximetry 96 10/19/19 22:36 MDM - SOB/Dyspnea MDM Narrative: Medical decision making narrative: Patient presents with hemoptysis likely from his cancer and pneumonia. CT chest showed no active bleeding. Patient continue have a mild to moderate amount of hemoptysis here and will admit him to Dr. Cervantes. Patient started on IV antibiotics. Lab Data: Labs: Lab Results 10/19/19 10/19/19 10/19/19 Range/Units 19:27 19:27 19:27 WBC 10.0 (4.0-10.0) 10^3/ uL RBC 4.33 (4.1-5.3) 10^6/u L Hgb 12.5 (11.7-16.6) g/dL Hct 39.7 L (42.0-52.0) % MCV 91.7 (80-94) fL MCH 28.9 (28.0-34.0) pg MCHC 31.5 (30.0-36.0) g/dL RDW 14.3 (12.1-15.1) % Plt Count 316 (130-400) 10^3/c mm MPV 9.6 (7.4-10.4) fL Neut % (Auto) 69.4 % Lymph % (Auto) 17.2 % [place] % (Auto) 9.7 % Eos % (Auto) 2.9 % Baso % (Auto) 0.4 % Neut # (Auto) 6.9 (1.8-7.7) 10^3/u L Lymph # (Auto) 1.7 (0.8-4.8) 10^3/u L [place] # (Auto) 1.0 H (0.2-0.9) 10^3/u L Eos # (Auto) 0.3 (0.0-0.8) 10^3/u L Baso # (Auto) 0.0 (0.0-0.1) 10^3/u L Nucleated RBC % (a uto) 0 % Nucleated RBCs # 0.0 /100WBC PT 14.30 H (10.5-13.3) SECO NDS INR 1.10 (0.8-1.2) Sodium 136 (136-145) mmol/L Potassium 4.1 (3.5-5.1) mmol/L Chloride 98 (98-107) mmol/L Carbon Dioxide 25 (22-29) mmol/L Anion Gap 17.1 (5-19) BUN 12 (8-23) mg/dL Creatinine 1.3 H (0.7-1.2) mg/dL Glucose 92 (65-115) mg/dL Calculated Osmolal ity 278 L (285-295) mOsm/k g Calcium 9.3 (8.5-10.5) mg/dL Total Bilirubin 0.6 (0.15-1.2) mg/dL AST 13 (0-40) U/L ALT 10 (0-41) U/L Alkaline Phosphata se 81 (40-130) IU/L NT-Pro-B Natriuret Pep 1593 H (0-450) pg/mL Total Protein 6.9 (6.6-8.7) g/dL Albumin 3.6 (3.5-5.2) g/dL Globulin 3.3 (1.3-4.6) g/dL Discharge Plan Discharge Patient Disposition: Admitted As Inpatient Clinical Impression: Cough with hemoptysis Pneumonia Qualifiers: Pneumonia type: due to unspecified organism Laterality: right Lung location: lower lobe of lung Qualified Code(s): J18.9 - Pneumonia, unspecified organism Condition: Stable Referrals: Ange Maldonado, [facility] [Primary Care Provider] - 4-7 days Discharge Diet: Advance as tolerated Discharge Activity: Resume usual activity Patient Instructions: Acute Hemoptysis (ED), Pneumonia (ED) Coding Level of Care Code ED Research Kennel Supervisor for Raveng Fwd Exam Comprehensive
[2019-10-19] MEDS: ipratropium-albuterol 3 mL Neb INHALATION (19:20)
[2019-10-19 19:23] VITALS: PULSE 71; RESP 18; O2SAT 96
[2019-10-19 19:38] LABS: Basophils % 0.4 %; Eosinophils # 0.3 10^3/uL (0.0-0.8); Eosinophils % 2.9 %; Hematocrit 39.7 % (42.0-52.0); Hemoglobin 12.5 g/dL (11.7-16.6); Lymphocytes # 1.7 10^3/uL (0.8-4.8); Lymphocytes % 17.2 %; Mean Corpuscular HGB Conc 31.5 g/dL (30.0-36.0); Mean Corpuscular Hemoglobin 28.9 pg (28.0-34.0); Mean Corpuscular Volume 91.7 fL (80-94); Mean Platelet Volume 9.6 fL (7.4-10.4); Monocytes % 9.7 %; Neutrophils # 6.9 10^3/uL (1.8-7.7); Neutrophils % 69.4 %; Nucleated Red Blood Cells % 0 %; Platelet Count 316 10^3/cmm (130-400); Red Blood Count 4.33 10^6/uL (4.1-5.3); Red Cell Distribution Width 14.3 % (12.1-15.1)
[2019-10-19 20:06] LABS: Alanine Aminotransferase 10 U/L (0-41); Albumin Level 3.6 g/dL (3.5-5.2); Alkaline Phosphatase 81 IU/L (40-130); Anion Gap 17.1 (5-19); Aspartate Amino Transferase 13 U/L (0-40); Blood Urea Nitrogen 12 mg/dL (8-23); Calcium 9.3 mg/dL (8.5-10.5); Carbon Dioxide 25 mmol/L (22-29); Chloride 98 mmol/L (98-107); Creatinine Clr Calc Pharmacy 55.6431; Globulin 3.3 g/dL (1.3-4.6); Glucose 92 mg/dL (65-115); NT Pro B Type Natriuretic Pept 1593 pg/mL (0-450); Osmolality Calculated 278 mOsm/kg (285-295); Potassium 4.1 mmol/L (3.5-5.1); Sodium 136 mmol/L (136-145); Total Bilirubin 0.6 mg/dL (0.15-1.2); Total Protein 6.9 g/dL (6.6-8.7)
[2019-10-19] MEDS: iodixanol 320 mg/mL 100mL Btl IV (20:19)
[2019-10-19] MEDS: cefTRIAXone 1,000 MG in sodium chloride 0.9% (plus) 50 ML 100 MG IV (21:59)
[2019-10-19] MEDS: azithromycin 500 MG in sodium chloride 0.9% 250 ML 250 MG IV (22:33)
[2019-10-19 22:36] VITALS: BP 114/60; PULSE 79; RESP 18; O2SAT 96
[2019-10-19 22:44] VITALS: RESP 18; O2SAT 96
[2019-10-19] MEDS: morphine 4 mg/mL SDV 1 mL IVP (22:44)
--- NOTE | 2019-10-19 22:47 | PM.HP ---
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 When asked patient why is he here, he pointed to multiple bloodsoaked tissue papers that were at bedside. Patient states that he has a history of lung cancer, states that he has had an increased cough over the last 2 to 3 days, with associated increased hemoptysis for the last 2 to 3 days, initially minimal, now occurring quite frequently, states that there were globs of blood with mucus whenever he coughs; patient states that to some degree he has chronic hemoptysis, only very minimal, only streaks of blood in his cough, work which are chronic for him. But now it is much more frequent, much more significant. Denies lightheadedness, dizziness, has chronic shortness of breath, uses 4 L, denies chest pain, denies palpitations. Denies fevers, no travel, no known exposure to covid19, no wheezing, no chills, no fatigue, no malaise, but is having a lot of generalized chest wall pain requesting his home Percocet. Review of Systems Const: Denies: fever, chills, fatigue or malaise Eyes: Denies: change in vision or blurry vision ENMT: Denies: nasal congestion Resp: Reports: shortness of breath, productive cough and coughing up blood; Denies: non-productive cough or wheezing GI: Denies: abdominal pain, nausea, vomiting, vomiting blood, diarrhea, constipation, blood in stool or black tarry stool : Denies: flank pain, difficulty urinating, painful urination or urinary frequency Musc: Denies: neck pain or back pain Skin/Breast: Denies: rash Neuro: Denies: headache, dizziness or vertigo Psych: Denies: anxiety or depression Endo: Denies: excessive urination or excessive thirst Medications/Allergies Allergies Allergy/AdvReac Type Severity Reaction Status Date / Time AARON Inhibitors Allergy Unknown Verified 09/11/19 07:50 duloxetine [From Cymbalta] Allergy Unknown Verified 09/11/19 07:50 hydroxychloroquine Allergy Unknown Verified 09/11/19 07:50 [From Plaquenil] pravastatin [From Pravachol] Allergy Unknown Verified 09/11/19 07:50 PFSH Acute PFSH: Medical History Abdominal aortic aneurysm Carotid stenosis COPD (chronic obstructive pulmonary disease) GERD (gastroesophageal reflux disease) Hyperlipemia Hypertension PAD (peripheral artery disease) Pulmonary fibrosis Rheumatoid arthritis SCC (squamous cell carcinoma of lung) Surgical History H/O heart artery stent x3 Family History (Updated 10/19/19 @ 22:55 by Jerald Montes MD) Other CAD (coronary artery disease) Hypertension Social History Smoking and tobacco status: current every day smoker cigarettes Packs smoked per day: 1 Years cigarettes smoked: 60 Alcohol intake: former Year of sobriety/quit date alcohol: 2010 Lives independently: Yes Current occupational status: retired History of recent travel: No Current gender identity: Male Vitals/I&O/Wt Last Vital Signs Temp 987.3 F H 10/19/19 19:01 Pulse 79 10/19/19 22:36 Resp 18 10/19/19 22:44 BP 114/60 10/19/19 22:36 Pulse Ox 96 10/19/19 22:44 10/19/19 10/19/19 10/19/19 06:59 14:59 22:59 Intake Total 50 / 50 Balance 50 / 50 Weight last 48 hrs Weight 83.915 kg Physical Exam Const: COMMON NORMALS: no apparent distress and oriented x3 GENERAL APPEARANCE: cooperative and comfortable HENMT: COMMON NORMALS: normocephalic HEAD & SCALP: normocephalic Eye: COMMON NORMALS: PERRL GENERAL EYE: normal appearance of both eyes PUPIL: Yes PERRL DIRECT OPHTHALMOSCOPY: Yes no papilledema Neck/C-Spine: COMMON NORMALS: full ROM, no lymphadenopathy, no JVD and thyroid normal THYROID: thyroid normal Lymph: LYMPHATIC: no lymphadenopathy noted Resp: COMMON NORMALS: normal respiratory effort, no retractions, no use of accessory muscles and clear to auscultation bilaterally AUSCULTATION: clear to auscultation bilaterally Cardio: COMMON NORMALS: no JVD, regular rate, regular rhythm, S1 normal heart sound, S2 normal heart sound, no gallops, no clicks and no murmurs RATE: regular rate RHYTHM: regular rhythm HEART SOUNDS: S1 normal and S2 normal GI: COMMON NORMALS: normal to inspection, nondistended, normoactive bowel sounds, soft to palpation, non-tender and no hepatosplenomegaly PALPATION: Yes soft and Yes no hepatosplenomegaly Extremity: COMMON NORMALS: normal to inspection, full ROM and no pedal edema Neuro: COMMON NORMALS: oriented x3, CN's II-XII intact bilaterally, moves all extremities and no focal motor deficits Psych: COMMON NORMALS: mental status grossly normal, thought process normal and cooperative THOUGHT PROCESS: normal thought process Data : 10/19/19 19:27 10/19/19 19:27 Micro: Microbiology 10/19/19 19:27 Blood Culture - Preliminary Blood SPECIMEN COLLECTED 10/19/19 21:31 Blood Culture - Preliminary Blood SPECIMEN COLLECTED A&P Assessment and plan (1) Cough with hemoptysis: -Patient is clinically significant hemoptysis -CT angiogram of the chest showed complete obstruction of the right inferior pulmonary vein, complete obstruction of the right lower lobe bronchus with atelectasis and consolidation of the right lower lobe which could represent tumor spread or postobstructive pneumonia Plan: -Admit to general medical floors -I spoke to Dr. Mobley, who will clinic kindly see the patient tomorrow morning for consideration for bronchoscopy -N.p.o. midnight -Hold aspirin, Plavix, patient advised of the risks and benefits of holding Plavix, risks of holding including ND, risk of continuing including worsening hemoptysis life-threatening bleeding, patient voiced understanding, all questions answered, agreed to hold -Antitussive agents -Monitor hemoglobin, INR -I discussed with patient his goals of care, patient is a poor candidate for surgery and radiation therapy given his recent history of stenting, but can possibly reevaluate with Dr. Akins, as patient would benefit from radiation therapy; I discussion with the goals of care, intervention including bronchoscopy with possible ablation, possible stenting, possible radiation therapy versus hospice, patient states that he wants to think on it Status: Acute (2) Postobstructive pneumonia: -Nebulizer treatments -Azithromycin, Rocephin -sputum culture -Antitussive agents Status: Acute (3) H/O heart artery stent: - Status: Acute (4) SCC (squamous cell carcinoma of lung): -poorly differentiated infiltrating squamous cell carcinoma involving the lower lobe of the right lung, stage IIIB (T2b, N3, M0) -His tumor was found to have high PD-L1 expression by IHC, approximately 80% by PD-L1 clone [id number] -Status post cycle 13 of pembrolizumab on 05/30/2019 -Was considered a poor candidate for surgery and radiation therapy given CAD status post stenting x3 Status: Acute (5) PAD (peripheral artery disease): Status: Acute (6) Hypertension: Status: Acute (7) Hyperlipemia: Status: Acute (8) Carotid stenosis: Status: Acute (9) Abdominal aortic aneurysm: Status: Acute (10) CAD (coronary artery disease): -Triple-vessel CAD -Status post stenting x3 -06/23/2018 acute inferior wall ND, occluded right coronary artery, status post tenting. He was found to have significant distal left main, circumflex, LAD disease, was turned down due to surgery given underlying lung cancer, COPD. - RCA stent widely open on December 22 cath severe left main -Severe left main, LAD and circumflex disease -Mid circumflex 95% stenosis stent placed -Left ventricular ejection fraction 40% - Status: Acute (11) COPD (chronic obstructive pulmonary disease): -4Lo2 -not in exacerbation Status: Acute Attestations Medical Necessity Statement*: She requires hospitalization, inpatient, greater than 2 midnights, hemoptysis and postobstructive pneumonia Coding Level of Care Code Acute Supervisor Inspection And Testing for g Fwd Diagnoses Cough with hemoptysis R04.2 Postobstructive pneumonia J18.9 H/O heart artery stent Z95.5 SCC (squamous cell carcinoma of lung) C34.90 PAD (peripheral artery disease) I73.9 Hypertension I10 Hyperlipemia E78.5 Carotid stenosis I65.29 Abdominal aortic aneurysm I71.4 CAD (coronary artery disease) I25.10 COPD (chronic obstructive pulmonary disease) J44.9
[2019-10-19 23:50] VITALS: BP 121/63; PULSE 74; RESP 18; O2SAT 94
[2019-10-19 23:55] VITALS: BP 121/63; PULSE 74; RESP 18; O2SAT 94
[2019-10-20] VITALS: BP 122/76; PULSE 71; RESP 18; TEMP 37; O2SAT 98
[2019-10-20] MEDS: sodium chloride 0.9% 1,000 ML 75 ML IV (00:28)
[2019-10-20 00:43] VITALS: RESP 18; O2SAT 98
[2019-10-20] MEDS: oxyCODONE IR 30 mg Tablet 15 MG PO ×2 (00:43→08:30)
[2019-10-20 01:00] LABS: INR 1.11 (0.8-1.2)
[2019-10-20 02:15] VITALS: PULSE 76; RESP 18; O2SAT 93
[2019-10-20 04:57] LABS: Basophils # 0.1 10^3/uL (0.0-0.1); Basophils % 0.6 %; Eosinophils # 0.3 10^3/uL (0.0-0.8); Eosinophils % 4.4 %; Hemoglobin 11.9 g/dL (11.7-16.6); Lymphocytes # 1.6 10^3/uL (0.8-4.8); Lymphocytes % 20.3 %; Mean Corpuscular HGB Conc 31.3 g/dL (30.0-36.0); Mean Corpuscular Hemoglobin 28.3 pg (28.0-34.0); Mean Corpuscular Volume 90.3 fL (80-94); Mean Platelet Volume 9.8 fL (7.4-10.4); Monocytes % 12.5 %; Neutrophils # 4.8 10^3/uL (1.8-7.7); Neutrophils % 61.7 %; Nucleated Red Blood Cells % 0 %; Platelet Count 295 10^3/cmm (130-400); Red Blood Count 4.21 10^6/uL (4.1-5.3); Red Cell Distribution Width 14.4 % (12.1-15.1); White Blood Count 7.8 10^3/uL (4.0-10.0)
[2019-10-20 05:29] LABS: Alanine Aminotransferase 9 U/L (0-41); Albumin Level 3.1 g/dL (3.5-5.2); Alkaline Phosphatase 75 IU/L (40-130); Anion Gap 15.2 (5-19); Aspartate Amino Transferase 11 U/L (0-40); Blood Urea Nitrogen 10 mg/dL (8-23); Calcium 9.1 mg/dL (8.5-10.5); Carbon Dioxide 27 mmol/L (22-29); Chloride 103 mmol/L (98-107); Creatinine Clr Calc Pharmacy 55.6431; Glucose 94 mg/dL (65-115); Magnesium 1.9 mg/dL (1.7-2.3); Osmolality Calculated 288 mOsm/kg (285-295); Phosphorus 4.8 mg/dL (2.5-4.5); Potassium 4.2 mmol/L (3.5-5.1); Sodium 141 mmol/L (136-145); Total Bilirubin 0.4 mg/dL (0.15-1.2); Total Protein 6.1 g/dL (6.6-8.7)
[2019-10-20 06:04] LABS: INR 1.06 (0.8-1.2)
[2019-10-20 06:23] LABS: Procalcitonin 0.08 ng/mL (0-0.5)
[2019-10-20 06:39] LABS: C Reactive Protein 33.6 mg/L (0.0-4.9)
--- NOTE | 2019-10-20 07:36 | PC.NURSE ---
AT 0100 MR. SPAULDING REQUESTED SOME WATER. NURSE TOLD THE PATIENT THAT THE DOCTOR WANTED HIM TO BE NPO BECAUSE OF THE POSSIBILITY OF DOING A BRONCHOSCOPY TOMORROW. AFTER THIS PATIENT GOT VERY AGITATED AND STATED I AM NOT DOING A BRONCHOSCOPY TOMORROW, I WANT TO BE SENT HOME TOMORROW, AND I NEED A DAMN DRINK . NURSE TRIED TO TALK WITH THE PATIENT AND SEE IF HE WOULD STAY NPO UNTIL THEY COULD DISCUSS THE PROCEDURE IN THE MORNING, BUT PATIENT INSISTED THAT HE WANTED A DRINK AND THAT HE WOULD NOT DO A PROCEDURE. NURSE NOTIFIED DR. CABRAL AND DR. CABRAL PUT HIM ON A CARDIAC DIET AND UNDERSTANDS THAT HE IS REFUSING THE BRONCHOSCOPY.
[2019-10-20 07:46] VITALS: BP 127/75; PULSE 81; RESP 22; TEMP 36.8; O2SAT 93
[2019-10-20 08:30] VITALS: PULSE 75; RESP 16; RESP 17; O2SAT 93
[2019-10-20] MEDS: isosorbide dinitrate 20 mg Tablet 15 MG PO (08:32)
[2019-10-20] MEDS: ALPRAZolam 0.5 mg Tablet PO (08:33)
--- NOTE | 2019-10-20 09:33 | PM.DCS ---
Discharge Providers Date of Admission: 10/19/19 22:57 Date of Discharge: October 20, 2019 Attending Provider at Admission: Jerald Montes MD Attending Provider at Discharge: Jagdish Manning MD Primary Care Provider: YAZ Miranda Diagnoses at Discharge Discharge Diagnosis (1) Cough with hemoptysis: Status: Acute Problem details: Resolved. Likely secondary to tumor invasion of vascular structures, progression of tumor. Will stop aspirin. Resume Plavix tomorrow. May have to discontinue this as well if recurrent bleeding (2) Postobstructive pneumonia: Status: Acute Problem details: Patient refuses continued admission. Will discharge on Augmentin. Risks and benefits discussed including and/or disability (3) H/O heart artery stent: Status: Acute Problem details: Last stenting in December. Continue Plavix if this can be tolerated. (4) SCC (squamous cell carcinoma of lung): Status: Acute Problem details: Follow-up with oncology next week. (5) PAD (peripheral artery disease): Status: Acute (6) Hypertension: Status: Acute (7) Hyperlipemia: Status: Acute (8) Carotid stenosis: Status: Acute (9) Abdominal aortic aneurysm: Status: Acute (10) CAD (coronary artery disease): Status: Acute (11) COPD (chronic obstructive pulmonary disease): Status: Acute Reason for Visit Reason for Visit: Reason For Visit: SPITTING UP BLOOD Hospital Course Hospital Course: Javier is a 74-year-old white male with known squamous cell carcinoma of the lung that presents with hemoptysis. Not significantly anemic. CT scan demonstrated progression of lung cancer, complete obstruction of right inferior pulmonary vein, complete obstruction of right lower lobe bronchus, and possible tumor spread or postobstructive pneumonia right lower lobe. Overnight, the patient's hemoptysis resolved. He had no fevers. He was on his baseline amount of oxygen. Hemoglobin did not drop significantly. He reported he was going home with or without my permission. He had refused bronchoscopy. He had not yet made any decision regarding hospice. I have visited briefly with his community development worker and oncologist. At this current time will stop aspirin, try to continue Plavix. I discussed with the patient that his situation is not ideal, and his decisions could cause and/or disability. He acknowledges this and reported he would go home no matter what. Therefore, I saw no reason to discharge him AGAINST MEDICAL ADVICE without the benefit of discharge antibiotics for presumed postobstructive pneumonia. He will follow-up with oncology next week. Physical Exam Narrative: EXAM NARRATIVE: General exam no apparent distress Cardiovascular regular in rhythm without murmur Lungs coarse breath sounds right side Abdomen is soft with positive bowel sounds Extremities no cyanosis clubbing or edema Discharge Data Data Completed and Pending: Completed Studies During Hospitalization Category Date Time Status CT angio chest PE protcl 69695 Urge nt Cat Scan 10/19/19 18:55 Completed Pending at discharge Category Date Time Status Blood Culture Sta t Lab 10/19/19 19:27 Results C Reactive Protei n AM LABS Lab 10/21/19 04:00 Ordered C Reactive Protei n AM LABS Lab 10/22/19 04:00 Ordered Complete Blood Co unt w/Auto AM LABS Lab 10/21/19 04:00 Ordered Complete Blood Co unt w/Auto AM LABS Lab 10/22/19 04:00 Ordered Comprehensive Met abolic Panel AM LA BS Lab 10/21/19 04:00 Ordered Comprehensive Met abolic Panel AM LA BS Lab 10/22/19 04:00 Ordered Magnesium AM LABS Lab 10/21/19 04:00 Ordered Magnesium AM LABS Lab 10/22/19 04:00 Ordered Phosphorus AM LAB S Lab 10/21/19 04:00 Ordered Phosphorus AM LAB S Lab 10/22/19 04:00 Ordered Procalcitonin AM LABS Lab 10/21/19 04:00 Ordered Procalcitonin AM LABS Lab 10/22/19 04:00 Ordered Sputum Culture an d Gram Stain Routi ne Lab 10/20/19 08:12 Ordered Labs from last 24 hours 10/20/19 10/20/19 10/20/19 04:22 04:22 04:22 WBC RBC Hgb Hct MCV MCH MCHC RDW Plt Count MPV Neut % (Auto) Lymph % (Auto) [place] % (Auto) Eos % (Auto) Baso % (Auto) Neut # (Auto) Lymph # (Auto) [place] # (Auto) Eos # (Auto) Baso # (Auto) Nucleated RBC % (a uto) Nucleated RBCs # PT 14.10 H INR 1.06 Sodium 141 Potassium 4.2 Chloride 103 Carbon Dioxide 27 Anion Gap 15.2 BUN 10 Creatinine 1.3 H Glucose 94 Calculated Osmolal ity 288 Calcium 9.1 Phosphorus 4.8 H Magnesium 1.9 Total Bilirubin 0.4 AST 11 ALT 9 Alkaline Phosphata se 75 C-Reactive Protein NT-Pro-B Natriuret Pep Total Protein 6.1 L Albumin 3.1 L Globulin 3.0 Procalcitonin 0.08 10/20/19 10/20/19 10/20/19 04:22 04:22 00:20 WBC 7.8 RBC 4.21 Hgb 11.9 Hct 38.0 L MCV 90.3 MCH 28.3 MCHC 31.3 RDW 14.4 Plt Count 295 MPV 9.8 Neut % (Auto) 61.7 Lymph % (Auto) 20.3 [place] % (Auto) 12.5 Eos % (Auto) 4.4 Baso % (Auto) 0.6 Neut # (Auto) 4.8 Lymph # (Auto) 1.6 [place] # (Auto) 1.0 H Eos # (Auto) 0.3 Baso # (Auto) 0.1 Nucleated RBC % (a uto) 0 Nucleated RBCs # 0.0 PT 14.30 H INR 1.11 Sodium Potassium Chloride Carbon Dioxide Anion Gap BUN Creatinine Glucose Calculated Osmolal ity Calcium Phosphorus Magnesium Total Bilirubin AST ALT Alkaline Phosphata se C-Reactive Protein 33.6 H NT-Pro-B Natriuret Pep Total Protein Albumin Globulin Procalcitonin 10/19/19 10/19/19 10/19/19 19:27 19:27 19:27 WBC 10.0 RBC 4.33 Hgb 12.5 Hct 39.7 L MCV 91.7 MCH 28.9 MCHC 31.5 RDW 14.3 Plt Count 316 MPV 9.6 Neut % (Auto) 69.4 Lymph % (Auto) 17.2 [place] % (Auto) 9.7 Eos % (Auto) 2.9 Baso % (Auto) 0.4 Neut # (Auto) 6.9 Lymph # (Auto) 1.7 [place] # (Auto) 1.0 H Eos # (Auto) 0.3 Baso # (Auto) 0.0 Nucleated RBC % (a uto) 0 Nucleated RBCs # 0.0 PT 14.30 H INR 1.10 Sodium 136 Potassium 4.1 Chloride 98 Carbon Dioxide 25 Anion Gap 17.1 BUN 12 Creatinine 1.3 H Glucose 92 Calculated Osmolal ity 278 L Calcium 9.3 Phosphorus Magnesium Total Bilirubin 0.6 AST 13 ALT 10 Alkaline Phosphata se 81 C-Reactive Protein NT-Pro-B Natriuret Pep 1593 H Total Protein 6.9 Albumin 3.6 Globulin 3.3 Procalcitonin Vitals: Last Vital Signs Temp 98.2 F 10/20/19 07:46 Pulse 75 10/20/19 08:30 Resp 16 10/20/19 08:30 BP 127/75 10/20/19 07:46 Pulse Ox 93 10/20/19 08:30 Discharge Plan Discharge Patient Disposition: Home, Self-Care Condition: Stable Prescriptions: New Augmentin 875-125 mg tablet 1 tab PO BID Qty: 20 RF: 0 Continued Trelegy Ellipta 100-62.5-25 mcg blister with device 1 inh INHALATION Q24H 60 Days Qty: 60 RF: 2 alprazolam 0.5 mg tablet 0.5 mg PO TID RF: 0 Anoro Ellipta 62.5-25 mcg/actuation blister with device 1 inh INHALATION Q24H RF: 0 ipratropium-albuterol 20-100 mcg/actuation mist 1 puff INHALATION ONCE PRN (Reason: Shortness Of Breath) RF: 0 oxycodone 15 mg tablet 15 mg PO Q6H PRN (Reason: Pain) RF: 0 clopidogrel [Plavix] 75 mg tablet 75 mg PO QAM RF: 0 prednisone 5 mg tablet 10 mg PO QAM RF: 0 simvastatin 40 mg tablet 40 mg PO QAM RF: 0 albuterol sulfate [Ventolin HFA] 90 mcg/actuation HFA aerosol inhaler 2 puff INHALATION Q6H PRN (Reason: Shortness Of Breath) RF: 0 Protonix 40 mg Tablet,Delayed Release (Dr/Ec) 40 mg PO QAM RF: 0 metoprolol succinate 25 mg Tablet Extended Release 24 Hr 12.5 mg PO QAM RF: 0 isosorbide dinitrate 30 mg Tablet 15 mg PO QAM RF: 0 Discontinued aspirin [Adult Aspirin Regimen] 81 mg tablet,delayed release (DR/EC) 81 mg PO QAM RF: 0 Discharge Orders: Discharge Order (Routine); Ordered 10/20/19 Ordered By: Jagdish Manning Referrals: Ange Maldonado, JEROMY-C [Primary Care Provider] - 4-7 days Joseph Akins MD [Hospitalist] - 4-7 days Discharge Diet: Advance as tolerated Discharge Activity: Resume usual activity Patient Instructions: Acute Hemoptysis (ED), Pneumonia (ED) Activity Restrictions/Additional Instructions: Return for any significant hemoptysis. Note that you have been taken off aspirin. Follow-up with oncology next week. Discharge Attestations Time Spent in Discharge Care*: greater than 30 min Quality Metrics Clinical Quality Measures During this hospital stay, did patient experience: None Coding Level of Care Code Acute Technical Manager [employer] for [employer] Fwd Diagnoses Cough with hemoptysis R04.2 Postobstructive pneumonia J18.9 H/O heart artery stent Z95.5 SCC (squamous cell carcinoma of lung) C34.90 PAD (peripheral artery disease) I73.9 Hypertension I10 Hyperlipemia E78.5 Carotid stenosis I65.29 Abdominal aortic aneurysm I71.4 CAD (coronary artery disease) I25.10 COPD (chronic obstructive pulmonary disease) J44.9
--- NOTE | 2019-10-20 09:37 | PC.CHAP ---
Pastoral Care Encounter/Spiritual Assessment Type of Contact [] Declined insole and outsole preparer visit [] Patient/Family/Request visit [] Outpatient visit [] Follow-up visit [] Physician referral [] Code/Alert [x] Routine visit [] Staff referral [] Actively dying [] Patient sleeping [] Family support [] [] Out of room [] Palliative care [] [] Receiving care in room [] Pre-surgical visit [] Trauma [] Long length of stay [] ICU visit [] Other: Relational/Emotional Strength [] Patient feels connected with others/family/visitors/staff [] Distress [] Loneliness/isolation [] Abandonment Spirituality of Patient [] Person of Anisha [] Attends Sikhism of their Anisha [x] Believes in Prayer [] Reads Bible or Church materials [] There are Spiritual issues to be addressed Unified Communications Architect Interventions [x] Prayer [] Active listening [] Non-anxious presence [] Spiritual/emotional support [] Crisis/trauma care [] Spiritual counseling [] Bereavement support [] Provided bereavement packet [] Provided Bible/devotional materials [] Provided toy/stuffed animal, coloring book to patient or family member [] Provided Communion [] Anointing/Guild [] Salvation [x] Completed spiritual assessment [] Other: Impact on Illness or Injury [] Angry [] Fearful [] Anxious [] Often cries [] Exhaustion [] Unable to work [] Unable to attend yarsani [] Unable to walk/stand [] Unable to read [] Unable to drive [] Unable to eat/drink [] Unable to sleep [] Unable to be with family [] Patient intubated [] Other: Summary Patient checked in last night had not seen doctor. Patient angry, to the point of tears. Wilmar advised nurse that Patient needed to see doctor, and receive meds. Nurse stated doctor was making rounds and was aware of patients condition. Noted doctor was in room within minutes. Time spent with patient 15 min
[2019-10-20 10:03] VITALS: BP 127/75; PULSE 75; RESP 16; TEMP 36.8; O2SAT 93
--- NOTE | 2019-10-20 10:32 | PC.NURSE ---
Patient discharged to home, instructions given ,voiced full understanding. to main entrance with wheelchair and O2,to daughters car.with zero difficulty
--- NOTE | 2019-10-20 17:03 | PC.SOCIAL ---
Patient could not take the pill form of Augmentin could not swallow. Changed to Oral liquid concentration of 600-42.9 per 5ml. To take 7.5ml twice daily for [address] iMo Manning order.
== END 2019-10-20 10:32 | disposition home or self-care (01) | DRG 180 ==
LOC: ER 21:27 → MEDSURG 23:11
PROVIDERS: Admitting Provider Family Medicine; Emergency Provider Emergency Medicine; Family Provider Nurse Practitioner; PCP Nurse Practitioner; Visit Provider Internal Medicine
DX: C34.31 Malignant neoplasm of lower lobe, right bronchus or lung (principal); J18.9 Pneumonia, unspecified organism; R04.2 Hemoptysis; I25.10 Atherosclerotic heart disease of native coronary artery without angina pectoris; Z95.5 Presence of coronary angioplasty implant and graft; Z79.82 Long term (current) use of aspirin; Z79.02 Long term (current) use of antithrombotics/antiplatelets; I10 Essential (primary) hypertension; E78.5 Hyperlipidemia, unspecified; I65.29 Occlusion and stenosis of unspecified carotid artery; I71.4 Abdominal aortic aneurysm, without rupture; J44.9 Chronic obstructive pulmonary disease, unspecified; Z99.81 Dependence on supplemental oxygen; J84.10 Pulmonary fibrosis, unspecified; M06.9 Rheumatoid arthritis, unspecified; K21.9 Gastro-esophageal reflux disease without esophagitis; I73.9 Peripheral vascular disease, unspecified; F17.210 Nicotine dependence, cigarettes, uncomplicated; F10.21 Alcohol dependence, in remission; Z79.891 Long term (current) use of opiate analgesic
CPT/HCPCS: 12345; 36415; 71275; 80053; 83735; 83880; 84100; 84145; 85025; 85610; 86140; 87040; 94640; 96365; 96375; 99283; 99284; J0456; J0696; J2270; J7030; J7050; J7611; Q9967

== ENCOUNTER 2019-10-26 07:11 | Outpatient (RCR) | payer MEDICARE, MEDICAID, SELFPAY ==
--- NOTE | 2019-10-28 10:20 | ONC FU_ITS ---
Dr. Akins Patient Follow-Up Note Patient: Javier Alexander Unit #: [id number]: [id number] Dicatated By: Joseph Akins M.D.Date of Visit:Oct 26, 2019 Onc Med Follow-up/Prog Note Chief Complaint: Lung cancer. 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 By clinical evaluation his disease is stage IIIB (T2b, N3, M0). I had seen him initially in June 2016 in regard to a low level IgM kappa monoclonal gammopathy. It had initially been discovered in March 2016 when his serum protein electrophoresis confirmed the presence of an IgM kappa paraprotein which quantitated at 0.21 g/dL. His CBC at that time showed normal hemoglobin at 14.6 g with hematocrit 44.6%. The white blood cell count was normal at 8500 and the platelet count was normal at 288,000. Comprehensive metabolic profile was unremarkable except for borderline renal function with BUN 15 and creatinine 1.2 mg/dL. The bilirubin and liver enzymes were normal. Calcium was normal 9.1 mg/dL. His evaluation had also included contrast-enhanced CT scans of the chest/abdomen/pelvis on 05/08/2016. The chest showed extensive centrilobular and paraseptal emphysematous changes, especially involving the upper lobes. There were increased interstitial opacities with honeycombing involving both lower lobes. The findings were felt to be consistent with interstitial pulmonary fibrosis, and they did appear to be progressive from a study in October 2013. A flattened density in the peripheral right middle lobe was unchanged, measuring 6.5 mm. There were no other mass lesions identified. A right paratracheal lymph node measured 1 x 1.8 cm with smaller subcentimeter right paratracheal lymph nodes also noted. An AP window lymph node measured 1.3 cm. Partially calcified subcarinal node or nodes measured up to 3.5 cm in width and 1.2 cm in depth with left hilar node and measuring 1.3 cm. There were smaller hilar nodes bilaterally up to 1.1 cm. The abdomen showed extensive atherosclerotic peripheral vascular disease with a 3.1 cm distal abdominal aortic aneurysm, increased from 2.7 cm in 2014. Given the findings, I had just recommended observation/expectant management for the monoclonal gammopathy. I had recommended that he had a follow-up chest CT scan, which he declined. On 06/23/2018 he was admitted to the hospital with an acute ST elevation myocardial infarction. He had been brought in by EMS following an episode of witnessed syncope with substernal chest pain. While in route he went into ventricular fibrillation requiring CPR. 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 He underwent stenting to the proximal and mid right coronary artery. Additional stenoses were noted in the left main, LAD, and circumflex arteries. He subsequently was evaluated by Dr. Espinosa and was recommended to undergo cardiac bypass surgery. In the meantime, repeat chest x-ray on 06/26/2018 showed evidence of the right lower lobe mass lesion versus right hilar lymphadenopathy, consistent with neoplasm. Further evaluation with chest CT showed a bulky superior segment right lower lobe neoplasm measuring 5.1 x 6.2 x 7.6 cm. There was associated subcarinal adenopathy measuring 4.4 x 2.3 x 6.2 cm. There was additional precarinal, right paratracheal, AP window, and bilateral hilar lymphadenopathy. There was evidence of bilateral lower lobe pneumonia and there was severe chronic emphysema. Also noted was progressive interstitial pulmonary fibrosis. Multiple foci of calcified pleural plaque formation in both alexsander-thoraces in the bilateral hemidiaphragms was felt to be consistent with prior asbestos exposure. PET/CT on 07/02/2018 showed a 5.1 x 4.7 cm superior segment right lower lobe mass with SUV 28.4. The mass was noted to extend into the hilum. A separate 2.4 cm node in the right middle lobe hilum was FDG avid with SUV 18.9. Malignant mediastinal adenopathy was also present with the index lesion in the subcarinal territory measuring 4.3 x 2.5 cm, SUV 25.8. Other smaller malignant nodes were present in the bilateral paratracheal and precarinal territories. On 07/15/2018 he underwent flexible diagnostic bronchoscopy. He was noted to have an endobronchial lesion in the right lower lobe bronchus. Biopsy showed poorly differentiated invasive squamous cell carcinoma. I had seen him initially on 07/25/2018. By clinical evaluation his disease was stage IIIB (T2b, N3, M0), the usual treatment for which would be concurrent chemoradiation. However, in view of his underlying medical illnesses and marginal performance status, our initial recommendation was to continue with palliative radiation as a single modality. In the meantime, I also requested a PD-L1 expression, and his tumor was found to have high PD-L1 expression by IHC, approximately 80% by PD-L1 clone [id number]. Because of his rheumatoid arthritis, he was referred to [facility] for the radiation. However, given the size of his tumor and the size of the radiation field that would be required to treat it, it was felt that radiation would have more risk than benefit. As such, he began a trial of therapy with pembrolizumab, cycle 1 beginning 09/01/2018. He tolerated the initial infusion well, and he then continued treatment at 3-week intervals. He received his 8th cycle on 01/26/2019. At his follow-up visit on 02/16/2019 I opted to put his treatment on hold due to worsening shortness of breath. His chest CT on 02/17/2019 showed marginal decrease in the size of the right upper lobe neoplasm with stable mediastinal and hilar lymphadenopathy. There was noted to be an enlarging left axillary lymph node. There was extensive calcified pleural plaque formation suggestive of prior asbestos exposure. There was evidence of chronic emphysema with bibasilar and to a lesser extent bilateral upper lobe interstitial fibrosis. With those findings, I did have him start on steroid therapy. He subsequently did show some improvement in his symptoms, and he was able to continue with cycle 9 of pembrolizumab on 03/07/2019. He tolerated it with no adverse effect, and he has since then continued treatment at 3-week intervals. He received his 13th cycle on 05/30/2019. On 06/10/2019 he had presented to the emergency room with increased shortness of breath. A CT pulmonary angiogram showed no evidence for pulmonary embolism. There was moderate to severe emphysema. A mass in the medial aspect of the right lower lobe was noted to have diminished in size from approximately 8 cm to 4 cm. Subcarinal tumor extension or adenopathy also was noted to have diminished in size. The previously noted areas of consolidation/infiltrate throughout both lung bases has almost completely resolved. Overall, there did not appear to be any acute findings and there was no evidence of disease progression. At his follow-up visit on 06/20/2019 he continued to complain of shortness of breath, and his treatment was put on hold. His medical history is otherwise significant for hypertension, hyperlipidemia, carotid artery disease, peripheral arterial disease, and known abdominal aortic aneurysm. His other illnesses include COPD, pulmonary fibrosis, rheumatoid arthritis, GERD, and a history of stroke. He has history of smoking for 60 years, previously up to 1 1/2 packs of cigarettes daily. He currently smokes 1 pack per day. He has had some alcohol use in the past, but not heavy. He quit drinking in 2010. INTERIM HISTORY: Repeat chest CT on 07/13/2019 showed interval increase in the size of the right lower lobe mass measuring 5.1 x 5.2 x 4.6 cm. Subcarinal extension of tumor and associated lymphadenopathy appeared stable, as did numerous prominent anterior mediastinal lymph nodes. There were advanced chronic emphysematous changes, but there were no acute pulmonary infiltrates. In July he had seen Dr. Mar for pulmonary consultation. He then started on a Trelegy inhaler and he started antibiotic suppression with a azithromycin 250 mg daily. At his follow-up visit on 08/28/2019 he was feeling somewhat better. A restaging PET/CT on 09/22/2019 showed evidence of overall positive partial response with residual right lower lobe mass measuring 4.1 x 2.9 cm. There was significant postobstructive atelectasis. Malignant adenopathy in the subcarinal and bilateral pretracheal territories were noted to be FDG negative and subcentimeter in size. There was no evidence of other metastatic involvement. He continued on observation/symptomatic management. On 10/19/2019 he was admitted to the hospital after presenting to the emergency room with hemoptysis. It has been getting worse over a period of several days. His CT pulmonary angiogram showed evidence of progression of the lung cancer with extension of the right infrahilar mass and with complete obstruction of the right lower lobe bronchus. There was increased consolidation in the right lower lobe, which at that point appeared to be completely consolidated. Prominent right paratracheal lymph nodes measuring up to 13 x 19 mm also had increased somewhat. There was some right pleural effusion. There was no evidence of pulmonary embolism. He declined to consider any type of intervention. He was discharged home the following day on antibiotic coverage with Augmentin. He was taken off aspirin, by Dr. Payan had recommended that he continue on Plavix. He is seen for a follow-up visit. He has not been feeling good generally. He does not have much energy, and there has been decline in his activity tolerance. His ECOG score is 2. He still has good appetite. He has not had fever. He has occasional sweating. He has been more short of breath. He is on continuous oxygen. He has some cough, but not a whole lot. His hemoptysis has been subsiding. He is having some trouble swallowing. In particular, he has difficulty swallowing his oxycodone tablets, which he feels are too large. His stomach sometimes feels queasy, and he has been belching a lot. Bowel and bladder function remain adequate. He complains that he has pain all over. His pain management has been problematic due to the difficulty with swallowing the pain pills. Medications: ALPRAZolam 1 Tablet (of 0.5 mg) Oral t.i.d. PRN, Ipratropium-Albuterol 1 (20-100 mcg/act) Aerosol, solution Inhalation daily PRN, Isosorbide Mononitrate ER 0.5 - 1 Tablet (of 30 mg) Tablet SR 24 HR Oral daily, Metoprolol Tartrate 0.5 (25 mg) Tablet Oral daily, oxyCODONE HCl 1 Tablet (of 30 mg) Oral q 6 hours PRN, Pantoprazole Sodium 1 Tablet (of 40 mg) Tablet, enteric coated Oral daily, Plavix 1 Tablet (of 75 mg) Oral daily, predniSONE 1 Tablet (of 10 mg) Oral daily, Simvastatin 1 Tablet (of 40 mg) Oral at bedtime, Trelegy Ellipta 1 Puff(s) (of 100-62.5-25 mcg/inh) Aerosol Powder, Breath Activated Inhalation daily PRN, Ventolin HFA 2 Puff(s) (of 108 (90 base) mcg/act) Aerosol, solution Inhalation four times a day PRN Allergies: AARON Inhibitors, Cymbalta, Plaquenil, and Pravachol. Review of Systems: Constitutional - He does not have much energy. His activity is more limited. His appetite is good and weight is stable. No fever, chills, hot flashes, or night sweats. ECOG score is 2, ENMT - He has chronic sinus congestion/drainage. No mouth sores. No sore throat. He has dysphagia, Hematologic/Lymphatic - He bruises easily, Respiratory - He has worsening in his shortness of breath. He wears continuous oxygen. He has a cough with pleuritic pain. He had hemoptysis on Wednesday and was evaluated in the Emergency Room, Cardiovascular - He has had some angina pain and his heart occasionally flutters, Gastrointestinal - He sometimes feels queasy, and he has had belching. No vomiting. No heartburn or acid reflux. No diarrhea or constipation. No blood in the stool or black stools, Genitourinary (M) - No dysuria or hematuria. No urinary frequency. No urgency or incontinence, Musculoskeletal - He has generalized pain, Integumentary - No skin complications, Neurologic - He seldom has headaches. He has or dizziness. No numbness/paresthesias or other focal neurologic symptoms, Psychiatric - He is having some anxiety. No insomnia. Vital Signs: Performed on Oct 26, 2019 10:58 Height - 72.00 in Weight - 170.4 lbs (LOW) BSA - 1.99 sq.m BMI - 23.11 Temperature - 98.9 F (HIGH) Pulse - 97 /min Respiration - 24 /min BP - 119/71 mm(hg) O2 Sat - 92 % (LOW) Pain - 8 Physical Examination: Constitutional - He appears somewhat weak generally, but not acutely ill, Eyes - Sclerae nonicteric. Conjunctivae clear, ENMT - No lesions noted in the oral cavity, Hematologic/Lymphatic - No cervical, clavicular, or axillary adenopathy, Respiratory - Lungs show diminished air movement bilaterally, but worse on the right, Cardiovascular - Heart rhythm is regular. There is a II/ systolic murmur. There is no gallop or rub noted, Abdomen - Soft. Liver and spleen are not enlarged. There is no abdominal mass or ascites noted and there is no inguinal adenopathy, Extremities - No edema. He has chronic purpura, Neurologic - No focal neurologic deficits noted. Impression: 1. 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 The clinical evaluation his disease is stage IIIB (T2b, N3, M0). His tumor was found to have high PD-L1 expression by IHC, approximately 80% by PD-L1 clone 22C3. 2. On 06/23/[address] acute [address] elevation myocardial infarction requiring emergent coronary angioplasty/stent placement. 3. Prior to the procedure he had gone into ventricular fibrillation, requiring CPR and multiple shocks. 4. His cardiac catheterization showed additional occlusive disease in the left main, LAD, and left circumflex arteries. His other medical illnesses include: 5. Hypertension. 6. Hyperlipidemia. 7. Carotid stenosis. 8. Peripheral arterial disease. 9. Abdominal aortic aneurysm. 10. COPD. 11. Pulmonary fibrosis. 12. Rheumatoid arthritis. 13. GERD. 14. IgM kappa monoclonal gammopathy of determine significance. He was evaluated for radiation, but ultimately it was determined that the risks with radiation would be too high. As such, he then began first-line immunotherapy with pembrolizumab. He receives his cycle 1 infusion on 09/01/2018. He tolerated it well, and he then continued treatment at 3-week intervals. He received cycle 8 of pembrolizumab on 01/26/2019. At his follow-up visit on 02/16/2019 his treatment was put on hold due to worsening shortness of breath. At the time I had suspected that he might be having some component of treatment related pneumonitis, and I did have him start steroid therapy. A subsequent chest CT showed marginal decrease in the size of the right upper lobe neoplasm. There were a lot of chronic changes related to COPD, but those did appear stable. He did show some symptomatic improvement on the prednisone, and he was then able to continue with cycle 9 of pembrolizumab on 03/07/2019. He tolerated it with no adverse effects. He then continued treatment at 3-week intervals. As of 05/30/2019 he received cycle 13 of pembrolizumab. His treatment subsequently was put on hold due to increased shortness of breath. CT pulmonary angiogram showed no evidence of pulmonary embolism or other acute pathology, and there was no obvious disease progression. During subsequent follow-up he did show some improvement in his breathing and in his performance status, though he continues to have limited activity tolerance. He had pulmonary consultation with Dr. Mar, and he has changed to a Trelegy inhaler along with antibiotic suppression with a azithromycin. His repeat chest CT in July did show further progression of the right lower lobe lung mass, but there did not appear to be any significant progression on a restaging PET/CT in September. However, he had recently presented to the emergency room with hemoptysis and his repeat CT pulmonary angiogram did show obvious progression of the right lower lobe mass, now with subcarinal extension and with obstruction of the right lower lobe bronchus. At this point his hemoptysis has subsided somewhat. He continues to have significant shortness of breath and his pain management has become more problematic, as he is having difficulty swallowing his oxycodone tablets. Plan: We discussed options for further management, which are very limited, as it was felt that he would not be a good candidate for palliative radiation. He has not been interested in attempting any chemotherapy, and he had basically become intolerant of immunotherapy. I talked to him about the possibility of laser surgery or endobronchial brachii therapy for symptomatic management of the bronchial obstruction/hemoptysis. He would first require bronchoscopy to see whether or not his disease would even be amenable to either procedure. We discussed the fact that if he is not interested in pursuing that option, transition to hospice would be appropriate. He is going to think about it. In the meantime, he will continue antibiotic coverage with Augmentin. I discussed some options for pain management. He is quite reluctant to consider any other medication. Initially he is just going to try and get a smaller oxycodone tablet through his local [facility] pharmacy. I am also giving him a prescription for an extended release oxycodone 30 mg every 12 hours, but that will depend on whether or not it is affordable for him. He is being given a prescription for citalopram 20 mg daily for the anxiety/depression, and he also will continue alprazolam as needed. His overall prognosis at this point is poor. Signed By: Joseph Akins M.D. <<Signature on File>>
== END 2019-11-02 23:59 | disposition home or self-care (01) ==
LOC: ONCMED 07:11
PROVIDERS: Family Provider Nurse Practitioner; PCP Nurse Practitioner; Visit Provider Internal Medicine Medical Oncology
DX: C34.31 Malignant neoplasm of lower lobe, right bronchus or lung (principal); D47.2 Monoclonal gammopathy; J44.9 Chronic obstructive pulmonary disease, unspecified; I25.2 Old myocardial infarction; I10 Essential (primary) hypertension; E78.5 Hyperlipidemia, unspecified; I65.23 Occlusion and stenosis of bilateral carotid arteries; I73.9 Peripheral vascular disease, unspecified; I71.4 Abdominal aortic aneurysm, without rupture; J84.10 Pulmonary fibrosis, unspecified; M06.9 Rheumatoid arthritis, unspecified; K21.9 Gastro-esophageal reflux disease without esophagitis; F41.9 Anxiety disorder, unspecified; F32.9 Major depressive disorder, single episode, unspecified; Z92.3 Personal history of irradiation; Z79.899 Other long term (current) drug therapy
CPT/HCPCS: 99214

== ENCOUNTER 2019-11-17 06:17 | Emergency (ER) | payer MEDICARE, MEDICAID, SELFPAY ==
[2019-11-17 06:19] VITALS: BP 111/67; PULSE 95; RESP 18; TEMP 37.1; O2SAT 92; BMI 24.4
[2019-11-17 06:27] VITALS: O2SAT 93
--- NOTE | 2019-11-17 06:27 | W.ED.FALL ---
HPI - Fall General: Chief Complaint: Fall Stated Complaint: fall/ failure to thrive Time Seen by Provider: 11/17/19 06:27 History of Present Illness: HPI Narrative: 74 yo male brought in by EMS for a fall. Patient lives at home he has recently been transitioning to hospice and was [facility]. He fell at home he is not really able to give me much history. 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 In addition to that he has a monoclonal gammopathy. He has not had any real meaningful response to any kind of treatments his most recent oncology note on 10/28/2019 related his prognosis is poor and essentially recommended that he consider hospice. She not really able to tell me much today he is complaining of initially hurting all over and then later in the visit he says he is not hurting at all. He did denies striking his head when he fell and denies any loss of consciousness. When asked him why he fell he states he got dizzy but that is all resolved now. Currently he is denying any chest pain denying any abdominal pain he is denying any difficulty with bowel or bladder denies any flank. Denies fever. He had previously been in the emergency room with hemoptysis related to his lung CA he denies having any of that at this point. Associated symptoms-after fall: Denies abdominal pain or chest pain Review of Systems Const: Denies: fever(s), chills, body aches, change in appetite, fatigue or malaise ENMT: Denies: throat pain, ear or mastoid pain, nasal discharge or nasal congestion Card: Reports: dyspnea on exertion; Denies: chest pain, edema or orthopnea Resp: Denies: dyspnea, productive cough or non-productive cough GI: Denies: abdominal pain, nausea, vomiting, hematemesis, coffee ground emesis, diarrhea, constipation, bloating, hematochezia or melena : Denies: flank pain, dysuria, urinary frequency or urinary urgency Skin/Breast: Denies: rash or pruritus PFSH ED PFSH: Medical History Abdominal aortic aneurysm Carotid stenosis COPD (chronic obstructive pulmonary disease) GERD (gastroesophageal reflux disease) Hyperlipemia Hypertension PAD (peripheral artery disease) Pulmonary fibrosis Rheumatoid arthritis SCC (squamous cell carcinoma of lung) Surgical History H/O heart artery stent Last stenting in December. Continue Plavix if this can be tolerated. Family History Other CAD (coronary artery disease) Hypertension Social History Smoking and tobacco status: current every day smoker cigarettes Packs smoked per day: 1 Years cigarettes smoked: 60 Second hand smoke exposure: Yes Smoking risk assessment/counseling performed?: Yes Alcohol intake: former Year of sobriety/quit date alcohol: 2010 Desire information about alcohol rehabilitation?: No Counseling given: No Desire information about substance/drug rehabilitation?: No Counseling given: No Adopted: No Caregiver/support person: No Lives independently: Yes Housing: House Marital status: Current occupational status: retired History of recent travel: No Current gender identity: Male Physical Exam Const: COMMON NORMALS: no acute distress GENERAL APPEARANCE: cooperative and comfortable ORIENTATION/CONSCIOUSNESS: Yes awake HENMT: COMMON NORMALS: normocephalic, atraumatic, hearing grossly normal bilaterally, external ears normal, EAC's normal, TM's normal bilaterally, Normal nasal mucous membranes and turbinates present, moist oral mucous membranes and oropharynx normal HEAD & SCALP: normocephalic and atraumatic NOSE: Normal nasal mucous membranes and turbinates present EXTERNAL EAR: Yes external ears normal EXTERNAL AUDITORY CANAL: EAC's normal TYMPANIC MEMBRANE: TM's normal bilaterally Eye: COMMON NORMALS: Equal, round and reactive pupils present, EOMs intact bilaterally, conjunctivae normal and no scleral icterus CONJUNCTIVA: Yes conjunctivae normal PUPIL: Yes Equal, round and reactive pupils present Neck/C-Spine: COMMON NORMALS: full ROM, no lymphadenopathy, supple and no JVD Lymph: LYMPHATIC: no lymphadenopathy noted and no lymphedema noted Resp: COMMON NORMALS: normal respiratory effort, No retractions, No use of accessory muscles and clear to auscultation bilaterally AUSCULTATION: clear to auscultation bilaterally Cardio: COMMON NORMALS: no JVD, regular rate, regular rhythm and No murmurs present (Cardio) RATE: regular rate RHYTHM: regular rhythm GI: COMMON NORMALS: Soft to palpation and No hepatosplenomegaly present AUSCULTATION: Yes normoactive bowel sounds PALPATION: Yes Soft to palpation, No Tenderness to palpation present (GI), No Guarding due to palpation present (GI) and Yes No hepatosplenomegaly present Extremity: COMMON NORMALS: normal to inspection, capillary refill normal, no clubbing, cyanosis or edema, no calf tenderness and no pedal edema Skin: COMMON NORMALS: no rashes or lesions noted NARRATIVE SKIN EXAM: Skin tears on the left elbow and left hand no active bleeding no full-thickness lacerations GENERAL SKIN EXAM: no rashes or lesions noted Course Vital Signs: Vital signs: Vital Signs Temperature 98.8 F 11/17/19 06:19 Pulse Rate 64 11/17/19 16:28 Respiratory Rate 18 11/17/19 16:28 Blood Pressure 112/58 11/17/19 16:28 Pulse Oximetry 96 11/17/19 16:28 MDM - Fall MDM Narrative: Medical decision making narrative: Patient is unable to make his own decisions not really fully cognizant of what is going on. He could be best if at this point his power of prosecuting attorney made his decisions in his best interest. Did talk with the family they did not wish to pursue any aggressive treatments they understand with the pneumonia that he may further decompensate and likely will on a short order but since there is no anticipation of treatment for his cancer treating his pneumonia with antibiotics will just caught it temporarily clear or decrease the level of symptoms and when the antibiotics are stopped or recur. Family understanding this wishes to admit him to comfort cares at the fdc. Arrangements were made and he will be transferred to [facility]. Lab Data: Labs: Lab Results 11/17/19 11/17/19 11/17/19 Range/Units 06:31 06:31 07:15 WBC 13.3 H (4.0-10.0) 10^3/ uL RBC 4.97 (4.1-5.3) 10^6/u L Hgb 13.7 (11.7-16.6) g/dL Hct 44.6 (42.0-52.0) % MCV 89.7 (80-94) fL MCH 27.6 L (28.0-34.0) pg MCHC 30.7 (30.0-36.0) g/dL RDW 14.6 (12.1-15.1) % Plt Count 350 (130-400) 10^3/c mm MPV 10.2 (7.4-10.4) fL Neut % (Auto) 82.4 % Lymph % (Auto) 7.6 % [place] % (Auto) 8.6 % Eos % (Auto) 0.6 % Baso % (Auto) 0.3 % Neut # (Auto) 11.0 H (1.8-7.7) 10^3/u L Lymph # (Auto) 1.0 (0.8-4.8) 10^3/u L [place] # (Auto) 1.1 H (0.2-0.9) 10^3/u L Eos # (Auto) 0.1 (0.0-0.8) 10^3/u L Baso # (Auto) 0.0 (0.0-0.1) 10^3/u L Nucleated RBC % (a uto) 0 % Nucleated RBCs # 0.0 /100WBC Specimen Type Arterial Sample Site Radial, left ABG pH 7.44 (7.35-7.45) ABG pCO2 41.4 (35-45) mmHg ABG pO2 58.6 L (80.0-100.0) mmH g ABG HCO3 28.2 H (22-26) mmol/L ABG O2 Saturation 91.6 ABG Base Excess 3.7 H (-2.0-2.0) mmol/ L Danial Test Pos A-a O2 Gradient 143.3 H (5-10) mmHg Hematocrit 41.4 L (42-52) % Hgb O2 Saturation 87.9 L (95-100) % Carboxyhemoglobin 3.3 (0.4-20.1) %THgb Methemoglobin 0.7 (0.4-1.5) % Total Hemoglobin 13.5 L (14-18) g/dL Ionized Calcium 1.2 (1.1-1.4) mmol/L O2 Delivery Device Nc O2 Liters/Min 4.0 % FiO2 36.0 % Gifted Program Teacher ID gd Sodium 140 138.0 (136-145) mmol/L Potassium 4.3 3.7 (3.5-5.1) mmol/L Chloride 99 (98-107) mmol/L Carbon Dioxide 28 (22-29) mmol/L Anion Gap 17.3 (5-19) BUN 13 (8-23) mg/dL Creatinine 1.2 (0.7-1.2) mg/dL Glucose 103 99.0 (65-115) mg/dL Calculated Osmolal ity 286 (285-295) mOsm/k g Calcium 9.9 (8.5-10.5) mg/dL Total Bilirubin 0.5 (0.15-1.2) mg/dL AST 26 (0-40) U/L ALT 27 (0-41) U/L Alkaline Phosphata se 107 (40-130) IU/L Total Protein 7.3 (6.6-8.7) g/dL Albumin 3.6 (3.5-5.2) g/dL Globulin 3.7 (1.3-4.6) g/dL Discharge Plan Discharge Patient Disposition: Home, Self-Care Clinical Impression: Postobstructive pneumonia, SCC (squamous cell carcinoma of lung), COPD (chronic obstructive pulmonary disease) Condition: Stable Prescriptions: No Action Trelegy Ellipta 100-62.5-25 mcg blister with device 1 inh INHALATION Q24H 60 Days Qty: 60 RF: 2 alprazolam 0.5 mg tablet 1 mg PO TID RF: 0 Anoro Ellipta 62.5-25 mcg/actuation blister with device 1 inh INHALATION Q24H RF: 0 ipratropium-albuterol 20-100 mcg/actuation mist 1 puff INHALATION ONCE PRN (Reason: Shortness Of Breath) RF: 0 clopidogrel [Plavix] 75 mg tablet 75 mg PO QAM RF: 0 prednisone 5 mg tablet 10 mg PO QAM RF: 0 albuterol sulfate [Ventolin HFA] 90 mcg/actuation HFA aerosol inhaler 2 puff INHALATION Q6H PRN (Reason: Shortness Of Breath) RF: 0 oxycodone 15 mg tablet 30 mg PO Q6H PRN (Reason: Pain) RF: 0 simvastatin 40 mg tablet 40 mg PO QAM 90 Days Qty: 90 RF: 3 citalopram 20 mg Tablet 20 mg PO DAILY RF: 0 aspirin 81 mg Tablet,Chewable 81 mg PO DAILY RF: 0 metoprolol succinate 25 mg Tablet Extended Release 24 Hr 12.5 mg PO QAM RF: 0 isosorbide dinitrate 30 mg Tablet 15 mg PO QAM RF: 0 Referrals: Ange Maldonado, [employer]PECTOR-C [Primary Care Provider] - Activity Restrictions/Additional Instructions: Discharged to [facility] on hospice hospice will make all arrangements for comfort cares. Discharge Date/Time: 11/17/19 17:35 Coding Level of Care Code ED Foreign Food Specialty Cook for Chg Fwd Exam Comprehensive
--- NOTE | 2019-11-17 06:46 | PC.NURSE ---
Patient very sleepy but arrouses to verbal stimuli. Patient also will desat into the 70's% when he takes off O2 and he also mouth breathes.
--- NOTE | 2019-11-17 06:53 | XR_ITS ---
WS: [id number] RIGHT ELBOW: 3 VIEW(S) TECHNIQUE: AP, oblique and lateral. HISTORY: fall, pain L elbow COMPARISON: None available. Small caliber intramedullary rods through the proximal radius and ulna. Incompletely visualized. Heal ing fractures in the mid radius and ulna. Degenerative changes and well-corticated osseous densities at the condyles bilaterally. No joint effusion. No soft tissue abnormality. XR/XR elbow RT min 3V* [id number] IMPRESSION: 1. Limited evaluation of the elbow due to positioning. 2. Intramedullary rodding radius and ulna. Rods are incompletely visualized. N o acute fracture. 3. Moderate degenerative changes at the elbow joint.
--- NOTE | 2019-11-17 06:53 | ECG_ITS ---
Measurements Intervals [place] Rate: 90 P: 43 AK: 191 QRS: -1 QRSD: 103 T: 53 QT: 354 QTc: 433 SINUS RHYTHM POSSIBLE LEFT ATRIAL ENLARGEMENT [-0.1mV P WAVE IN V1/V2] NONSPECIFIC ST & T-WAVE ABNORMALITY Compared to ECG 09/11/2019 10:28:20 T-wave abnormality now present First degree AV block no longer present Electronically Signed On 11-17-2019 13:05:52 CDT by Kimani Payan M.D. [email or web address]
--- NOTE | 2019-11-17 06:53 | XR_ITS ---
WS: [id number] PORTABLE CHEST HISTORY: dyspnea/cough COMPARISON: 09/11/2019 Hyperinflated lungs with changes of emphysema and pulmonary fibrosis. New consolidation and fluid at the RIGHT lung base. Small RIGHT pleural effusion. Cardiac size: Mildly enlarged cardiac silhouette. Mediastinum/Aorta: Mildly ectatic aorta. Partially calcified aorta. No osseous abnormality seen. XR/XR chest 1V portable [id number] IMPRESSION: 1. New pneumonia or atelectasis at the RIGHT base with small pleural effusion. 2. Severe emphysema with superimposed pulmonary fibrosis.
--- NOTE | 2019-11-17 06:53 | CTR_ITS ---
PROCEDURE INFORMATION: Exam: CT Head Without Contrast Exam date and time: 11/17/2019 7:04 AM Age: 74 years old Clinical indication: Injury or trauma; Initial encounter; Blunt trauma (contusions or hematomas); Without loss of consciousness; Alteration of consciousness; Somnolence (drowsiness); Patient HX: HX of lung CA - lethargy and fall this am TECHNIQUE: Imaging protocol: Computed tomography of the head without contrast. Radiation optimization: All CT scans at this facility use at least one of these dose optimization techniques: automated exposure control; mA and/or kV adjustment per patient size (includes targeted exams where dose is matched to clinical indication); or iterative reconstruction. COMPARISON: MRI Head w/wo* [id number] 07/26/2018 1:24 PM RADIATION DOSE METRICS: Total DLP: 883.61 mGy-cm FINDINGS: Brain: Prominent extra-axial vessel over the left hemispheric convexity superiorly . No midline shift. No focal ischemic injury. No intracranial hemorrhage or focal edema. Expanded cerebrospinal fluid space within the midline posterior fossa posteriorly. Ventricles: Normal. No ventriculomegaly. Bones/joints: Unremarkable. No acute fracture. Sinuses: Visualized sinuses are unremarkable. No fluid levels. Mastoid air cells: Visualized mastoid air cells are well aerated. Soft tissues: Unremarkable. Vasculature: Intracranial vascular calcification. Other findings: Hemispheric volume loss. CT/CT head wo con* [id number] IMPRESSION: 1. No acute intracranial process. Radiation Dose CTDIVOL = (mGy): DLP = 883.61 (mGy-cm)
[2019-11-17 07:01] LABS: Basophils % 0.3 %; Eosinophils # 0.1 10^3/uL (0.0-0.8); Eosinophils % 0.6 %; Hematocrit 44.6 % (42.0-52.0); Hemoglobin 13.7 g/dL (11.7-16.6); Lymphocytes % 7.6 %; Mean Corpuscular HGB Conc 30.7 g/dL (30.0-36.0); Mean Corpuscular Hemoglobin 27.6 pg (28.0-34.0); Mean Corpuscular Volume 89.7 fL (80-94); Mean Platelet Volume 10.2 fL (7.4-10.4); Monocytes # 1.1 10^3/uL (0.2-0.9); Monocytes % 8.6 %; Neutrophils % 82.4 %; Nucleated Red Blood Cells % 0 %; Platelet Count 350 10^3/cmm (130-400); Red Blood Count 4.97 10^6/uL (4.1-5.3); Red Cell Distribution Width 14.6 % (12.1-15.1); White Blood Count 13.3 10^3/uL (4.0-10.0)
[2019-11-17 07:11] LABS: Alanine Aminotransferase 27 U/L (0-41); Albumin Level 3.6 g/dL (3.5-5.2); Alkaline Phosphatase 107 IU/L (40-130); Anion Gap 17.3 (5-19); Aspartate Amino Transferase 26 U/L (0-40); Blood Urea Nitrogen 13 mg/dL (8-23); Calcium 9.9 mg/dL (8.5-10.5); Carbon Dioxide 28 mmol/L (22-29); Chloride 99 mmol/L (98-107); Globulin 3.7 g/dL (1.3-4.6); Glucose 103 mg/dL (65-115); Osmolality Calculated 286 mOsm/kg (285-295); Potassium 4.3 mmol/L (3.5-5.1); Sodium 140 mmol/L (136-145); Total Bilirubin 0.5 mg/dL (0.15-1.2); Total Protein 7.3 g/dL (6.6-8.7)
[2019-11-17 07:31] LABS: ABG PCO2 41.4 mmHg (35-45); ABG PH Result 7.44 (7.35-7.45); Alveolar-Arterial Oxygen Gradi 143.3 mmHg (5-10); Arterial Blood Gas Hematocrit 41.4 % (42-52); Base Excess ABG 3.7 mmol/L (-2.0-2.0); Blood Gas Allen Test Pos; Blood Gas Sample Site Radial, left; Blood Gas Sample Type Arterial; Carboxyhemoglobin 3.3 %THgb (0.4-20.1); HCO3 ABG 28.2 mmol/L (22-26); HGB O2 Sat 87.9 % (95-100); Ionized Calcium Level - ABG 1.2 mmol/L (1.1-1.4); Methemoglobin 0.7 % (0.4-1.5); Oxygen Device NC; Oxygen Saturation ABG 91.6; PO2 ABG 58.6 mmHg (80.0-100.0); Potassium Level - ABG 3.7 mmol/L (3.5-5.0); Total Hemoglobin 13.5 g/dL (14-18)
[2019-11-17] MEDS: ziprasidone 20 mg/mL SDV 10 MG IM (08:21)
[2019-11-17] MEDS: LORazepam 2 mg/mL INJ 1 mL 1 MG IVP (08:23)
[2019-11-17 16:28] VITALS: BP 112/58; PULSE 64; RESP 18; O2SAT 96
== END 2019-11-17 17:35 | disposition home or self-care (01) ==
PROVIDERS: Emergency Provider Family Medicine; Family Provider Nurse Practitioner; PCP Nurse Practitioner
DX: J44.0 Chronic obstructive pulmonary disease with (acute) lower respiratory infection (principal); J18.8 Other pneumonia, unspecified organism; C34.90 Malignant neoplasm of unspecified part of unspecified bronchus or lung; Z79.02 Long term (current) use of antithrombotics/antiplatelets; Z79.82 Long term (current) use of aspirin; E78.5 Hyperlipidemia, unspecified; I10 Essential (primary) hypertension; F17.210 Nicotine dependence, cigarettes, uncomplicated
CPT/HCPCS: 12345; 36600; 70450; 71045; 73080; 80051; 80053; 82810; 83986; 85025; 93005; 96372; 96374; 96375; 99282; 99284; J2060; J3486